=== PATIENT | male | born 1955 | race Hispanic/Latino ===

== ENCOUNTER 2018-06-30 15:51 | Observation (INO) | payer OTHER ==
[~2018-06-30] VITALS: Ht 170.2 cm; Wt 73.3 kg
[~2018-06-30 15:51] MED LIST: METF-526 PO; TAMS0.4C32 PO
[2018-06-30] MEDS ORDERED: CHARCOAL/SORBITOL 50 GM/240 ML SUSP ONE (16:59)
[2018-06-30 17:08] LABS: BASOPHILS % (AUTO) 0.3 % (0.0-5.0); EOSINOPHILS % (AUTO) 0.1 % (0.0-8.0); HEMATOCRIT 54.4 % (42-54); LYMPHOCYTES % (AUTO) 4.9 % (21.0-51.0); MEAN CORPUSCULAR HEMOGLOBIN 29.7 pg (27.0-33.0); MEAN CORPUSCULAR HGB CONC 33.4 g/dL (32.0-36.0); MONOCYTES % (AUTO) 5.4 % (3.0-13.0); NEUTROPHILS % (AUTO) 89.3 % (40.0-77.0); PLATELET COUNT (AUTO) 232 K/uL (130-400); RED BLOOD CELL COUNT(AUTO) 6.11 MIL/uL (4.50-6.20); RED CELL DISTRIBUTION WIDTH 13.9 % (11.0-15.5); WHITE BLOOD COUNT (AUTO) 11.5 K/uL (4.8-10.8)
[2018-06-30 17:08] LABS: ABG BASE EXCESS -5.6 mmol/L (-2.0-3.0); ABG HCO3 19.1 mmol/L (21.0-28.0); ABG OXYGEN SATURATION 91.5 % (95.0-99.0); ABG PCO2 35 mmHg (35-48)
[2018-06-30 17:18] LABS: CARBON DIOXIDE 25 mmol/L (21-32); CHLORIDE 103 mmol/L (101-111); CREATININE 1.4 mg/dL (0.5-1.5); GLOMERULAR FILTR. RATE CALC 55 mL/min (>60); GLUCOSE,RANDOM 103 mg/dL (70-105); POTASSIUM 3.4 mmol/L (3.5-5.1); SODIUM SERUM 140 mmol/L (136-145); UREA NITROGEN, BLOOD 12 mg/dL (7-18)
[2018-06-30 17:23] LABS: ALANINE AMINOTRANSFERASE 36 U/L (12-78); ALCOHOL, BLOOD < 3 mg/dL (0-10); ASPARTATE AMINOTRANSFERASE 55 U/L (10-37); BILIRUBIN,TOTAL 0.6 mg/dL (0.2-1.0); TOTAL PROTEIN, SERUM 7.6 g/dL (6.0-8.3)
[2018-06-30 17:26] LABS: ACETAMINOPHEN < 1 mcg/mL (10-29); SALICYLATE < 2.8 mg/dL (2.8-20.0)
[2018-06-30 23:04] LABS: BILIRUBIN,URINE Negative (NEGATIVE); COLOR,URINE Yellow (YELLOW); GLUCOSE, URINE (UA) Negative (NEGATIVE); KETONES,URINE Negative (NEGATIVE); LEUKOCYTE ESTERASE ,URINE Negative (NEGATIVE); NITRATE,URINE Negative (NEGATIVE); OCCULT BLOOD,URINE Negative (NEGATIVE); PROTEIN,URINE Negative (NEGATIVE)
[2018-06-30 23:07] LABS: APPEARANCE,URINE CLOUDY (CLEAR)
[2018-06-30 23:11] LABS: AMPHET/METH SCREEN,URINE NEGATIVE (NEGATIVE); BARBITURATE SCREEN, URINE NEGATIVE (NEGATIVE); BENZODIAZEPINES SCREEN,URINE NEGATIVE (NEGATIVE); CANNABINOID SCREEN,URINE POSITIVE (NEGATIVE); COCAINE SCREEN,URINE POSITIVE (NEGATIVE); OPIATE SCREEN,URINE NEGATIVE (NEGATIVE); PHENCYCLIDINE SCREEN,URINE NEGATIVE (NEGATIVE)
[2018-06-30 23:19] LABS: AMORPHOUS SEDIMENT,UR Many /LPF (None Seen); BACTERIA,URINE Few /HPF (None Seen); RBC,URINE None Seen /HPF (0-1); SQUAMOUS EPITHELIAL CELL,UR 0-2 /HPF (0-2); WBC,URINE 0-1 /HPF (0-1)
[2018-06-30 23:25] VITALS: BP 141/97
[2018-07-01] VITALS (9 sets, daily range): BP systolic 125–161; BP diastolic 69–92
[2018-07-01] MEDS ORDERED: ACETAMINOPHEN 325 MG TAB PO PRN ×2 (02:30)
[2018-07-01] MEDS ORDERED: PANTOPRAZOLE 40 MG/VIAL IVP SCH (09:00)
[2018-07-01] MEDS ORDERED: TRAZODONE HCL 100 MG TABLET PO SCH (21:00)
[2018-07-01] MEDS: BUSPIRONE HCL 5 MG TABLET PO SCH (21:09)
[2018-07-02] VITALS: BP 124/69
[2018-07-02 04:00] VITALS: BP 138/85
[2018-07-02 08:00] VITALS: BP 131/73
[2018-07-02] MEDS: BUSPIRONE HCL 5 MG TABLET PO SCH (08:31)
[2018-07-02] MEDS ORDERED: PANTOPRAZOLE SODIUM 40 MG TABLET.DR PO SCH (09:00)
[2018-07-02 12:00] VITALS: BP 134/80
[2018-07-02] MEDS ORDERED: TRAMADOL HCL 50 MG TABLET PO PRN (13:30)
[2018-07-02 14:37] LABS: CREATININE 1.4 mg/dL (0.5-1.5); POTASSIUM 3.9 mmol/L (3.5-5.1)
[2018-07-02 16:06] VITALS: BP 129/66
[2018-07-03] MEDS ORDERED: METFORMIN HCL 500 MG TAB.SR.24H PO SCH (08:00)
[2018-07-03] MEDS ORDERED: TAMSULOSIN HCL 0.4 MG CAP.ER.24H PO SCH (09:00)
== END 2018-07-02 16:20 | disposition home or self-care (01) ==
LOC: EDH 15:51 → EDHIP 18:43 → 2DH 22:21
PROVIDERS: ADMIT Internal Medicine Critical Care Medicine; ATTEND Internal Medicine Critical Care Medicine
DX: T50.901A Poisoning by unspecified drugs, medicaments and biological substances, accidental (unintentional), initial encounter (principal); E11.9 Type 2 diabetes mellitus without complications; G89.4 Chronic pain syndrome; E66.9 Obesity, unspecified; I10 Essential (primary) hypertension; F60.7 Dependent personality disorder; F12.90 Cannabis use, unspecified, uncomplicated; Z72.0 Tobacco use; F32.9 Major depressive disorder, single episode, unspecified; F06.4 Anxiety disorder due to known physiological condition; Y92.89 Other specified places as the place of occurrence of the external cause; Z98.84 Bariatric surgery status; Z79.899 Other long term (current) drug therapy
CPT/HCPCS: 36415 ×2; 36600; 72125; 72128; 72131; 80048; 80053; 80305; 81001; 82803; 82948 ×3; 84484; 85025; 93005; 96374; 99291; C9113; G0378 ×46; G0480 ×2; G0481

== ENCOUNTER 2018-07-11 01:52 | Emergency (ER) | payer OTHER ==
[2018-07-11] MEDS ORDERED: KETOROLAC TROMETHAMINE 30MG/ML ONE (02:16)
[2018-07-11 02:19] LABS: BASOPHILS % (AUTO) 0.5 % (0.0-5.0); EOSINOPHILS % (AUTO) 1.4 % (0.0-8.0); HEMATOCRIT 48.3 % (42-54); LYMPHOCYTES % (AUTO) 11.8 % (21.0-51.0); MEAN CORPUSCULAR HGB CONC 33.7 g/dL (32.0-36.0); MEAN CORPUSCULAR VOLUME 89.1 fL (79-99); MONOCYTES % (AUTO) 4.8 % (3.0-13.0); NEUTROPHILS % (AUTO) 81.5 % (40.0-77.0); NUCLEATED RED BLOOD CELLS 0.1 % (0.0-0.19); PLATELET COUNT (AUTO) 206 K/uL (130-400); RED BLOOD CELL COUNT(AUTO) 5.42 MIL/uL (4.50-6.20); WHITE BLOOD COUNT (AUTO) 9.4 K/uL (4.8-10.8)
[2018-07-11 02:21] LABS: CREATININE 1.4 mg/dL (0.5-1.5); POTASSIUM 3.8 mmol/L (3.5-5.1)
[2018-07-11 02:27] LABS: ALBUMIN 3.5 g/dL (3.5-5.0); BILIRUBIN,TOTAL 0.2 mg/dL (0.2-1.0); TOTAL PROTEIN, SERUM 6.9 g/dL (6.0-8.3)
[2018-07-11 02:57] LABS: APPEARANCE,URINE Clear (CLEAR); BILIRUBIN,URINE Negative (NEGATIVE); COLOR,URINE Yellow (YELLOW); GLUCOSE, URINE (UA) Negative (NEGATIVE); KETONES,URINE Negative (NEGATIVE); LEUKOCYTE ESTERASE ,URINE Trace (NEGATIVE); NITRATE,URINE Negative (NEGATIVE); OCCULT BLOOD,URINE Negative (NEGATIVE); PROTEIN,URINE Negative (NEGATIVE); UROBILINOGEN,URINE 0.2 mg/dL (0.2-1.0)
[2018-07-11 03:05] LABS: AMPHET/METH SCREEN,URINE NEGATIVE (NEGATIVE); BARBITURATE SCREEN, URINE NEGATIVE (NEGATIVE); BENZODIAZEPINES SCREEN,URINE NEGATIVE (NEGATIVE); CANNABINOID SCREEN,URINE POSITIVE (NEGATIVE); COCAINE SCREEN,URINE NEGATIVE (NEGATIVE); OPIATE SCREEN,URINE NEGATIVE (NEGATIVE); PHENCYCLIDINE SCREEN,URINE NEGATIVE (NEGATIVE)
[2018-07-11 03:14] LABS: RBC,URINE 0-1 /HPF (0-1); WBC,URINE 0-1 /HPF (0-1)
[2018-07-11 03:15] LABS: BACTERIA,URINE Rare /HPF (None Seen); SQUAMOUS EPITHELIAL CELL,UR 0-2 /HPF (0-2)
== END 2018-07-11 03:35 | disposition home or self-care (01) ==
LOC: EDH 01:52
DX: M94.0 Chondrocostal junction syndrome [Tietze] (principal); I10 Essential (primary) hypertension; Z72.0 Tobacco use; Z88.0 Allergy status to penicillin; Z88.1 Allergy status to other antibiotic agents
CPT/HCPCS: 36415; 71045; 80053; 80305; 81001; 83690; 84484; 85025; 93005; 96374; 99284; G0480; J1885

== ENCOUNTER 2019-09-29 19:47 | Emergency (ER) | payer OTHER ==
[2019-09-29 20:53] LABS: BASOPHILS % (AUTO) 0.5 % (0.0-5.0); HEMATOCRIT 41.3 % (42-54); LYMPHOCYTES % (AUTO) 20.1 % (21.0-51.0); MEAN CORPUSCULAR HEMOGLOBIN 29.5 pg (27.0-33.0); MEAN CORPUSCULAR HGB CONC 33.2 g/dL (32.0-36.0); MONOCYTES % (AUTO) 6.7 % (3.0-13.0); NEUTROPHILS % (AUTO) 71.1 % (40.0-77.0); PLATELET COUNT (AUTO) 219 K/uL (130-400); RED BLOOD CELL COUNT(AUTO) 4.64 MIL/uL (4.50-6.20); RED CELL DISTRIBUTION WIDTH 13.3 % (11.0-15.5); WHITE BLOOD COUNT (AUTO) 8.7 K/uL (4.8-10.8)
[2019-09-29 21:00] LABS: CREATININE 1.3 mg/dL (0.5-1.5); POTASSIUM 3.5 mmol/L (3.5-5.1)
[2019-09-29 21:04] LABS: ALBUMIN 3.1 g/dL (3.5-5.0); BILIRUBIN,TOTAL 0.2 mg/dL (0.2-1.0); TOTAL PROTEIN, SERUM 6.7 g/dL (6.0-8.3)
[2019-09-29] MEDS ORDERED: ONDANSETRON HCL 4 MG/2 ML VIAL ONE (21:06)
[2019-09-29] MEDS ORDERED: SODIUM CHLORIDE 0.9% 1000ML 1,000 ML IV ONE (21:08)
[2019-09-29] MEDS ORDERED: IOHEXOL-350 75 ML VIAL IV ONE (21:28)
== END 2019-09-29 22:40 | disposition home or self-care (01) ==
LOC: EDH 19:47
DX: K29.70 Gastritis, unspecified, without bleeding (principal); R11.2 Nausea with vomiting, unspecified; R10.84 Generalized abdominal pain; R42 Dizziness and giddiness; I10 Essential (primary) hypertension; Z88.1 Allergy status to other antibiotic agents; Z88.0 Allergy status to penicillin; Z88.6 Allergy status to analgesic agent; Z72.0 Tobacco use
CPT/HCPCS: 36415; 74177; 80053; 82550; 83690; 84484; 85025; 93005; 96374; 96375; 99284; J2405; J7030; Q9967

== ENCOUNTER → 2021-09-25 | Outpatient (CLI) | payer MEDICARE ==
[~2021-09-25] VITALS: Ht 170.2 cm; Wt 93.4 kg
[~2021-09-25] MED LIST changes: +AMIT10TA6 PO; +ASPI-1443 PO; +ATOM80CA3 PO; +BUSP5TAB3 PO; +DIAZ10TA4 PO; +DULO30CA52 PO; +FINA5TAB41 PO; +FOLI1CAP23 PO; +FOLI1CAP24 PO; +GABA800T9 PO; +ISOS30TA92 PO; +LORA10TA7 PO; +NAPR-1023 PO; +PANT40TA54 PO; +REGADENOSON 0.4 MG/5 ML PF SYG IVP SCH; +ROSU20TA23 PO; +TAMS-1 PO; +TRAZ-185 PO; +VALS1TAB76 PO
== END | disposition home or self-care (01) ==
LOC: SHCH 09:27
PROVIDERS: ATTEND Internal Medicine Cardiovascular Disease
DX: I25.9 Chronic ischemic heart disease, unspecified (principal); R94.31 Abnormal electrocardiogram [ECG] [EKG]
CPT/HCPCS: 78452; 93017; A9500 ×2; J2785; 96374

== ENCOUNTER 2021-10-31 07:00 | Day surgery (SDC) | payer MEDICARE ==
[2021-10-27 10:19] LABS: APPEARANCE,URINE Clear (CLEAR); BILIRUBIN,URINE Negative (NEGATIVE); COLOR,URINE Yellow (YELLOW); GLUCOSE, URINE (UA) Negative (NEGATIVE); KETONES,URINE Trace mg/dL (NEGATIVE); LEUKOCYTE ESTERASE ,URINE Negative (NEGATIVE); NITRATE,URINE Negative (NEGATIVE); OCCULT BLOOD,URINE Negative (NEGATIVE); PH,URINE 5.5 (5.0-8.0); PROTEIN,URINE Negative (NEGATIVE); UROBILINOGEN,URINE 0.2 mg/dL (0.2-1.0)
[2021-10-27 10:45] LABS: BACTERIA,URINE Rare /HPF (None Seen); RBC,URINE 0-1 /HPF (0-1); WBC,URINE 0-1 /HPF (0-1)
[2021-10-27 10:46] LABS: BASOPHILS % (AUTO) 0.7 % (0.0-5.0); EOSINOPHILS % (AUTO) 0.8 % (0.0-8.0); LYMPHOCYTES % (AUTO) 31.4 % (21.0-51.0); MEAN CORPUSCULAR HEMOGLOBIN 29.8 pg (27.0-33.0); MEAN CORPUSCULAR HGB CONC 33.6 g/dL (32.0-36.0); MEAN CORPUSCULAR VOLUME 88.8 fL (79-99); MONOCYTES % (AUTO) 6.9 % (3.0-13.0); NEUTROPHILS % (AUTO) 59.5 % (40.0-77.0); PLATELET COUNT (AUTO) 221 K/uL (130-400); RED BLOOD CELL COUNT(AUTO) 5.63 MIL/uL (4.50-6.20); RED CELL DISTRIBUTION WIDTH 13.3 % (11.0-15.5); WHITE BLOOD COUNT (AUTO) 7.1 K/uL (4.8-10.8)
[2021-10-27 10:46] LABS: SQUAMOUS EPITHELIAL CELL,UR 0-2 /HPF (0-2)
[2021-10-27 10:55] LABS: INR 0.98 (0.85-1.15); PROTHROMBIN TIME 10.7 SEC (9.6-11.6)
[2021-10-27 10:57] LABS: PARTIAL THROMBOPLASTIN TIME 26.6 SEC (26.3-35.5)
[2021-10-27 12:03] LABS: CREATININE 1.1 mg/dL (0.5-1.5)
[2021-10-31] VITALS (10 sets, daily range): BP systolic 72–101; BP diastolic 41–73
[~2021-10-31] VITALS: Ht 170.2 cm; Wt 90.6 kg
[~2021-10-31 07:00] MED LIST changes: +0.9% NACL 500ML IV.SOLN 500 ML IV SCH; -FOLI1CAP23 PO; -METF-526 PO; -REGADENOSON 0.4 MG/5 ML PF SYG IVP SCH; -ROSU20TA23 PO; -TAMS0.4C32 PO
[2021-10-31] MEDS ORDERED: 0.9%NACL 1000ML 1,000 ML IV ONE (08:21)
[2021-10-31] MEDS ORDERED: NITROGLYCERIN 50MG VIAL ONE (10:05)
[2021-10-31] MEDS ORDERED: LIDOCAINE HCL 400MG/20ML VIAL ONE (10:05)
[2021-10-31] MEDS ORDERED: HEPARIN 10,000 UNIT/10ML (1,000 UNIT/ML) VIAL ONE (10:05)
[2021-10-31] MEDS ORDERED: IOHEXOL 350 MG/ML 100ML INFUS..BTL IV ONE (10:06)
[2021-10-31] MEDS ORDERED: IOHEXOL-350 50ML VIAL IV ONE (10:06)
[2021-10-31] MEDS ORDERED: NICARDIPINE 25MG INJ IV ONE (10:07)
[2021-10-31] MEDS ORDERED: MIDAZOLAM HCL 1 MG/ML 2ML VIAL ONE (10:09)
[2021-10-31] MEDS ORDERED: FENTANYL CITRATE PF 50 MCG/1 ML 2ML VIAL ONE (10:09)
[2021-10-31] MEDS ORDERED: EPINEPHRINE PF 1MG AMP ONE (10:46)
[2021-10-31] MEDS ORDERED: GLUCAGON 1MG KIT 1 MG ML IM PRN (11:30)
[2021-10-31] MEDS ORDERED: DEXTROSE 50%-WATER 50 ML DISP.SYRIN IV PRN (11:30)
[2021-10-31] MEDS ORDERED: ACETAMINOPHEN 325 MG TAB ONE (14:37)
[2021-10-31] MEDS ORDERED: ACETAMINOPHEN 325 MG TAB PO SCH (16:00)
== END 2021-10-31 15:05 | disposition home or self-care (01) ==
LOC: DAH 07:00
PROVIDERS: ATTEND Internal Medicine Cardiovascular Disease
DX: I25.10 Atherosclerotic heart disease of native coronary artery without angina pectoris (principal); Q24.5 Malformation of coronary vessels; I10 Essential (primary) hypertension; K21.9 Gastro-esophageal reflux disease without esophagitis; F17.200 Nicotine dependence, unspecified, uncomplicated; N40.0 Benign prostatic hyperplasia without lower urinary tract symptoms; Z98.890 Other specified postprocedural states; Z88.8 Allergy status to other drugs, medicaments and biological substances; Z79.899 Other long term (current) drug therapy
CPT/HCPCS: 36415; 71045; 80048; 81001; 82948; 85025; 85610; 85730; 93005; 93458; A4215 ×2; A4216; A4221; A4222; A4223 ×3; A4606; A4663; C1769; C1894; J1644 ×2; J2250; J3010; J3490 ×3; J7030 ×2; Q9965 ×2; Q9967; 99156; 99157; J0171

== ENCOUNTER → 2022-01-03 | Outpatient (CLI) | payer MEDICARE ==
[~2022-01-03] MED LIST changes: -0.9% NACL 500ML IV.SOLN 500 ML IV SCH; +FOLI1CAP23 PO; -FOLI1CAP24 PO; -NAPR-1023 PO; +ROSU20TA23 PO; -TRAZ-185 PO; +TRAZ-187 PO
== END | disposition home or self-care (01) ==
LOC: RAH 07:38
PROVIDERS: ATTEND Internal Medicine Cardiovascular Disease
DX: K76.0 Fatty (change of) liver, not elsewhere classified (principal); R10.9 Unspecified abdominal pain
CPT/HCPCS: 76700

== ENCOUNTER → 2022-12-06 | Outpatient (CLI) | payer OTHER | END | disposition home or self-care (01) | LOC: RAH 08:34 | PROVIDERS: ATTEND Internal Medicine Gastroenterology | DX: R13.10 Dysphagia, unspecified (principal) | CPT/HCPCS: 74220 ==

== ENCOUNTER 2022-12-07 09:39 | Emergency (ER) | payer OTHER ==
[~2022-12-07] VITALS: Ht 170.2 cm; Wt 90.7 kg
[2022-12-07 09:55] LABS: EOSINOPHILS % (AUTO) 1.9 % (0.0-8.0); HEMATOCRIT 47.5 % (42-54); LYMPHOCYTES % (AUTO) 38.4 % (21.0-51.0); MEAN CORPUSCULAR HEMOGLOBIN 24.9 pg (27.0-33.0); MEAN CORPUSCULAR HGB CONC 31.8 g/dL (32.0-36.0); MEAN CORPUSCULAR VOLUME 78.3 fL (79-99); MONOCYTES % (AUTO) 9.3 % (3.0-13.0); PLATELET COUNT (AUTO) 231 K/uL (130-400); RED BLOOD CELL COUNT(AUTO) 6.07 MIL/uL (4.50-6.20); RED CELL DISTRIBUTION WIDTH 17.2 % (11.0-15.5)
[2022-12-07 10:12] LABS: APPEARANCE,URINE CLEAR (CLEAR); BILIRUBIN,URINE NEGATIVE (NEGATIVE); COLOR,URINE COLORLESS (YELLOW); GLUCOSE, URINE (UA) NEGATIVE (NEGATIVE); KETONES,URINE NEGATIVE (NEGATIVE); LEUKOCYTE ESTERASE ,URINE NEGATIVE Leu/uL (NEGATIVE); NITRATE,URINE NEGATIVE (NEGATIVE); OCCULT BLOOD,URINE NEGATIVE (NEGATIVE); PROTEIN,URINE NEGATIVE (NEGATIVE); UROBILINOGEN,URINE 0.2 mg/dL (0.2-1.0)
[2022-12-07 10:16] LABS: ALANINE AMINOTRANSFERASE 54 U/L (12-78); ALBUMIN 3.9 g/dL (3.5-5.0); ASPARTATE AMINOTRANSFERASE 55 U/L (10-37); CARBON DIOXIDE 25 mmol/L (21-32); CHLORIDE 101 mmol/L (101-111); CREATINE KINASE, TOTAL 53 U/L (21-232); CREATININE 1.1 mg/dL (0.5-1.5); GLOMERULAR FILTR. RATE CALC 74 mL/min (>90); GLUCOSE,RANDOM 166 mg/dL (70-105); POTASSIUM 3.9 mmol/L (3.5-5.1); SODIUM SERUM 137 mmol/L (136-145); TOTAL PROTEIN, SERUM 7.3 g/dL (6.0-8.3); UREA NITROGEN, BLOOD 15 mg/dL (7-18)
[2022-12-07 10:17] LABS: B-TYPE NATRIURETIC PEPTIDE 56 pg/mL (0-100)
[2022-12-07 12:39] VITALS: BP 145/82
== END 2022-12-07 12:40 | disposition home or self-care (01) ==
LOC: EDH 09:39
DX: R07.89 Other chest pain (principal); R07.0 Pain in throat; I10 Essential (primary) hypertension; E78.00 Pure hypercholesterolemia, unspecified; I49.3 Ventricular premature depolarization; Z79.82 Long term (current) use of aspirin; Z79.899 Other long term (current) drug therapy; Z90.49 Acquired absence of other specified parts of digestive tract; Z98.890 Other specified postprocedural states; Z95.1 Presence of aortocoronary bypass graft; Z88.0 Allergy status to penicillin; Z88.5 Allergy status to narcotic agent
CPT/HCPCS: 36415; 71250; 74176; 80053; 81003; 82550; 83735; 83880; 84484; 85025; 93005

== ENCOUNTER → 2023-07-30 | Outpatient (CLI) | payer MEDICARE | END | disposition home or self-care (01) | LOC: RAH 12:38 | PROVIDERS: ATTEND Family Medicine | DX: I73.9 Peripheral vascular disease, unspecified (principal); I77.1 Stricture of artery | CPT/HCPCS: 93925 ==

== ENCOUNTER → 2023-10-16 | Outpatient (CLI) | payer MEDICARE ==
[~2023-10-16] MED LIST changes: +BACL10TA PO; +CELE200 PO; +DILT120C43 PO; +ERGO500093 PO; +ESOM40CA54 PO; +FLUT15.845 NS; +FURO40TA5 PO; +HYDR-3421 PO; +NAPR-1023 PO; +NITR0.4T50 SL; +OMEP40CA21 PO; +PREG100C56 PO; +TRAZ150T79 PO
== END | disposition home or self-care (01) ==
LOC: RAH 13:48
PROVIDERS: ATTEND Family Medicine
DX: M47.26 Other spondylosis with radiculopathy, lumbar region (principal); M43.5X6 Other recurrent vertebral dislocation, lumbar region; M48.00 Spinal stenosis, site unspecified; M51.16 Intervertebral disc disorders with radiculopathy, lumbar region
CPT/HCPCS: 72148

== ENCOUNTER → 2023-12-03 | Outpatient (CLI) | payer MEDICARE ==
[~2023-12-03] MED LIST changes: -AMIT10TA6 PO; -ATOM80CA3 PO; -BUSP5TAB3 PO; -DIAZ10TA4 PO; -DULO30CA52 PO; -GABA800T9 PO; -LORA10TA7 PO; -PANT40TA54 PO; -TRAZ-187 PO; -VALS1TAB76 PO
[2023-12-03 12:34] LABS: ALBUMIN 3.3 g/dL (3.5-5.0); BILIRUBIN,TOTAL 0.3 mg/dL (0.2-1.0); POTASSIUM 4.1 mmol/L (3.5-5.1); TOTAL PROTEIN, SERUM 6.6 g/dL (6.0-8.3)
== END | disposition home or self-care (01) ==
LOC: LAB 09:29
PROVIDERS: ATTEND Internal Medicine Cardiovascular Disease
DX: R60.9 Edema, unspecified (principal)
CPT/HCPCS: 36415; 80053; 83880

== ENCOUNTER → 2024-01-03 | Outpatient (CLI) | payer MEDICARE ==
[~2024-01-03] MED LIST changes: -ESOM40CA54 PO; +ESOM40CA66 PO; +GADOTERATE MEGLUMINE 10 MMOL/20 ML VIAL IV ONE
== END | disposition home or self-care (01) ==
LOC: RAH 13:12
PROVIDERS: ATTEND Family Medicine
DX: R90.82 White matter disease, unspecified (principal); H93.3X3 Disorders of bilateral acoustic nerves; H93.13 Tinnitus, bilateral
CPT/HCPCS: 70553; A9575

== ENCOUNTER 2024-01-12 00:37 | Emergency (ER) | payer MEDICARE ==
[~2024-01-12] VITALS: Ht 157.5 cm; Wt 93.0 kg
[~2024-01-12 00:37] MED LIST changes: -ASPI-1443 PO; -BACL10TA PO; +BUSP10TA3 PO; -CELE200 PO; -DILT120C43 PO; +DOCU100C33 PO; +FAMO40TA7 PO; -FLUT15.845 NS; -FURO40TA5 PO; -GADOTERATE MEGLUMINE 10 MMOL/20 ML VIAL IV ONE; -HYDR-3421 PO; +MULT-1289 PO; -NAPR-1023 PO; -OMEP40CA21 PO; +PROP20TA7 PO; -TRAZ150T79 PO
[2024-01-12] MEDS: SOLU-MEDROL 125MG VIAL IVP STA (00:52)
[2024-01-12] MEDS: EPINEPHRINE PF 1MG (1:1,000) 1 MG/ML AMP IM STA (00:52)
[2024-01-12] MEDS: FAMOTIDINE 20MG VIAL IV STA (00:53)
[2024-01-12] MEDS: DiphenhydrAMINE HCL 50 MG/ML VIAL IV STA (00:53)
[2024-01-12 01:05] VITALS: BP 177/87; PULSE 77; RESP 18; O2SAT 99
== END 2024-01-12 01:50 | disposition home or self-care (01) ==
LOC: EDH 00:37
DX: T50.905A Adverse effect of unspecified drugs, medicaments and biological substances, initial encounter (principal); I10 Essential (primary) hypertension; E78.00 Pure hypercholesterolemia, unspecified; Z79.82 Long term (current) use of aspirin; Z79.899 Other long term (current) drug therapy; Z90.49 Acquired absence of other specified parts of digestive tract; Z98.890 Other specified postprocedural states; Z88.0 Allergy status to penicillin; Z88.5 Allergy status to narcotic agent; Z88.8 Allergy status to other drugs, medicaments and biological substances; Y92.89 Other specified places as the place of occurrence of the external cause
CPT/HCPCS: 99284; 96374; 96375; 96372; J1200; J3490; J2919; J0171

== ENCOUNTER → 2024-08-11 | Outpatient (CLI) | payer OTHER ==
--- NOTE | 2024-08-11 15:15 | HMCIMG ---
MR SPINAL CANAL, CERV WO CON HISTORY: Pain COMPARISON: None TECHNIQUE: MRI of the cervical spine was performed utilizing multiple pulse sequences in axial and sagittal plane. Patient was not given contrast through intravenous route. FINDINGS: No abnormal signal intensity is seen of the visualized bony structure. Mild loss of vertebral height is seen at the C5-C6 with 20% loss of height.. There is straightening of normal lordotic cervical curvature which may be related to muscle spasm or positioning. Degenerative disc signals are present at all cervical spine levels. Cerebellar tonsils are in normal position. The cervical cord is of normal signal intensity without cord compression or impingement. At the C5-6 level, there is spondylotic disc causing anterior CSF space effacement with bilateral lateral recess stenosis and minimal bilateral neural foraminal stenosis. The central canal measures approximately 6.5 mm in its anterior posterior dimension. At the C6-7 level, there is spondylotic disc causing anterior CSF space effacement with bilateral lateral recess stenosis and mild bilateral neural foraminal stenosis. The central canal measures approximately 7.1 mm in its anterior posterior dimension. IMPRESSION: 1. DJD with cervical spine spondylosis and mild central canal narrowing predominantly involving the C5-6 and C6-7 levels.
== END | disposition home or self-care (01) ==
LOC: RAH 10:38
PROVIDERS: ATTEND Family Medicine
DX: M47.812 Spondylosis without myelopathy or radiculopathy, cervical region (principal); M48.02 Spinal stenosis, cervical region; R29.890 Loss of height
CPT/HCPCS: 72141

== ENCOUNTER → 2025-01-19 | Outpatient (CLI) | payer OTHER ==
[~2025-01-19] MED LIST changes: -TAMS-1 PO; +TAMS-55 PO
--- NOTE | 2025-01-20 10:23 | HMCIMG ---
EXAM: MR Lumbar Spine Without Intravenous Contrast. CLINICAL HISTORY: Pain. TECHNIQUE: Magnetic resonance images of the lumbar spine in multiple planes. CONTRAST: None. COMPARISON: MRI lumbar spine dated 10/16/23. FINDINGS: Sacralization of the last lumbar vertebra. Postoperative status evident by posterior spinal fixation orthopedic hardware at L4-L5 with intervertebral disc fusion. Chronic wedge compression fracture of the T12 vertebral body with loss of about 40%-50% of its height. No acute fracture. Normal lordotic curvature. Mild lumbar spondylosis with multilevel marginal osteophytes, facet arthropathy, disc desiccation and mild degenerative disc space reduction at T11-T12 and T12-L1. Grade I degenerative anterolisthesis of L4 over L5. Normal remaining vertebral body and disc heights. Normal marrow signal of the vertebrae. Conus medullaris terminates at the T12-L1 level. No abnormal epidural masses. The surrounding soft tissues are unremarkable. Individual spinal levels are described as follows: T12-L1: No disc bulge or herniation. No neural foraminal, lateral recess or spinal canal stenosis. L1-L2: No disc bulge or herniation. No neural foraminal, lateral recess or spinal canal stenosis. L2-L3: 3 mm diffuse disc bulge. Moderate bilateral lateral recess and mild bilateral neural foraminal stenosis. Mild spinal canal stenosis. L3-L4: 4 mm diffuse disc bulge. Bilateral ligamentum flavum hypertrophy. Moderate bilateral lateral recess and neural foraminal stenosis. Moderate spinal canal stenosis. L4-L5: Status post laminectomy. 2 mm diffuse disc bulge. Bilateral facet hypertrophy. Moderate bilateral lateral recess and neural foraminal stenosis. Moderate spinal canal stenosis. L5-S1: Status post laminectomy. No disc bulge or herniation. No neural foraminal, lateral recess or spinal canal stenosis. IMPRESSION: Sacralization of the last lumbar vertebra. Postoperative status evident by posterior spinal fixation orthopedic hardware at L4-L5 with intervertebral disc fusion. Chronic wedge compression fracture of the T12 vertebral body with loss of about 40%-50% of its height. Mild lumbar spondylosis with multilevel marginal osteophytes, facet arthropathy, disc desiccation and mild degenerative disc space reduction at T11-T12 and T12-L1. Grade I degenerative anterolisthesis of L4 over L5. Diffuse disc bulges at L2-L3 and L3-L4. Moderate bilateral lateral recess and mild bilateral neural foraminal stenosis at L2-L3 with mild spinal canal stenosis. Moderate bilateral lateral recess and neural foraminal stenosis at L3-L4 with moderate spinal canal stenosis. Compared to the prior MRI lumbar spine dated 10/16/23, there are interval postoperative changes at L4-L5. The remaining findings are stable. /[place]
== END | disposition home or self-care (01) ==
LOC: RAH 14:41
PROVIDERS: ATTEND Family Medicine
DX: M47.26 Other spondylosis with radiculopathy, lumbar region (principal); S22.080A Wedge compression fracture of T11-T12 vertebra, initial encounter for closed fracture; M51.16 Intervertebral disc disorders with radiculopathy, lumbar region; M43.16 Spondylolisthesis, lumbar region; M48.061 Spinal stenosis, lumbar region without neurogenic claudication; M25.78 Osteophyte, vertebrae; M47.814 Spondylosis without myelopathy or radiculopathy, thoracic region; X58.XXXA Exposure to other specified factors, initial encounter; Y93.89 Activity, other specified; Y92.89 Other specified places as the place of occurrence of the external cause; Y99.8 Other external cause status; Z98.1 Arthrodesis status; Z98.890 Other specified postprocedural states
CPT/HCPCS: 72148

== ENCOUNTER → 2025-01-25 | Outpatient (CLI) | payer OTHER ==
[2025-01-25 08:55] LABS: CREATININE 1.0 mg/dL (0.5-1.3); GLOMERULAR FILTR. RATE CALC 81.0 mL/min (>90); UREA NITROGEN, BLOOD 9.0 mg/dL (7-18)
== END | disposition home or self-care (01) ==
LOC: LAB 08:19
PROVIDERS: ATTEND Surgery
DX: K44.9 Diaphragmatic hernia without obstruction or gangrene (principal); K95.89 Other complications of other bariatric procedure
CPT/HCPCS: 36415; 82565; 84520

== ENCOUNTER → 2025-01-26 | Outpatient (CLI) | payer OTHER ==
[~2025-01-26] MED LIST changes: +IOHEXOL-350 75 ML VIAL IV ONE
--- NOTE | 2025-01-27 04:06 | HMCIMG ---
EXAM: CT Abdomen and Pelvis without and with IV contrast. CLINICAL HISTORY: Dysphagia. TECHNIQUE: Thin collimated axial CT images of the abdomen and pelvis were obtained with sagittal and coronal reformatted images also submitted. CT scan done according to ALARA (As Low As Reasonably Achievable). Intravenous contrast was administered. COMPARISON: CT abdomen and pelvis without contrast dated 01/10/24. FINDINGS: Post-sternotomy status. Unremarkable visualized lung parenchyma. There is no focal abnormality appreciated within the liver, pancreas, spleen, adrenals, or kidneys. Tiny splenic cyst. Post cholecystectomy status. Post partial gastrectomy status with surgical kael in place. Surgical kael along the anterior abdominal wall. There is no obvious bowel wall thickening. Bowel loops are normal in caliber without evidence of obstruction or ileus. The appendix is not visualized. Uncomplicated colonic diverticulosis. There is no abnormality within the urinary bladder. Unremarkable reproductive organs. Abdominal and pelvic vessels are patent. No significant lymphadenopathy. No free fluid. There is no acute osseous abnormality. Mild degenerative osseous changes. Age indeterminate wedge compression fracture of the T12 vertebral body with 40%-50% height loss. Postoperative spinal fixation apparatus at L4-L5 vertebral levels with intervening age fixation. IMPRESSION: 1. Post-surgical changes including sternotomy, cholecystectomy, partial gastrectomy, and L4-L5 spinal fixation. 3. Uncomplicated colonic diverticulosis. 4. Tiny splenic cyst. 5. Mild degenerative osseous changes. Age-indeterminate T12 vertebral body compression fracture with 40-50% height loss. Compared with the prior CT abdomen and pelvis dated 01/10/24, there is interval resolution of pneumoperitoneum, mesenteric haziness, abdominal wall emphysema, and bilateral pleural effusions. The remaining findings are relatively stable. /[place]
== END | disposition home or self-care (01) ==
LOC: RAH 08:30
PROVIDERS: ATTEND Surgery
DX: D73.4 Cyst of spleen (principal); S22.080A Wedge compression fracture of T11-T12 vertebra, initial encounter for closed fracture; K57.30 Diverticulosis of large intestine without perforation or abscess without bleeding; K44.9 Diaphragmatic hernia without obstruction or gangrene; R13.10 Dysphagia, unspecified; R10.13 Epigastric pain; M47.819 Spondylosis without myelopathy or radiculopathy, site unspecified; Z98.890 Other specified postprocedural states; Z90.49 Acquired absence of other specified parts of digestive tract; Z90.3 Acquired absence of stomach [part of]; X58.XXXA Exposure to other specified factors, initial encounter; Y93.89 Activity, other specified; Y92.89 Other specified places as the place of occurrence of the external cause; Y99.8 Other external cause status
CPT/HCPCS: 74177; Q9967

== ENCOUNTER → 2025-02-03 | Outpatient (CLI) | payer OTHER ==
[~2025-02-03] MED LIST changes: -IOHEXOL-350 75 ML VIAL IV ONE
--- NOTE | 2025-02-03 12:49 | HMCIMG ---
PROCEDURE: Double Contrast upper GI series. TECHNIQUE: Oral ingestion of barium and effervescent crystals was performed and multiple fluoroscopic images were obtained to evaluate the esophagus, stomach, and duodenum. FLUOROSCOPY TIME: 0.9 minutes FINDINGS: The esophagus demonstrates normal motility. The mucosa is normal without evidence of mass, ulceration, or stricture. There was mild to moderate gastroesophageal reflux witnessed during this examination. There is a small hiatal hernia. A barium tablet easily passed through the esophagus into the stomach without hold up. Patient is status post gastric sleeve surgery with postsurgical changes. The stomach demonstrates normal motility and normal mucosa without evidence of mass, ulceration, or stricture. The duodenal bulb is unremarkable. The duodenum demonstrates normal motility, and normal mucosa without evidence of mass, ulceration, or stricture. Status post median sternotomy with cardiac revascularization procedure. There is grade 1-2 compression fractures of the superior endplate of T12 vertebral body.. IMPRESSION: Status post gastric sleeve surgery. There is postsurgical small hiatal hernia with grade 2 esophageal reflux. There is compression fracture of superior endplate of T12 which is amenable for vertebral body augmentation.
== END | disposition home or self-care (01) ==
LOC: RAH 10:02
PROVIDERS: ATTEND Surgery
DX: K21.9 Gastro-esophageal reflux disease without esophagitis (principal); K44.9 Diaphragmatic hernia without obstruction or gangrene; M48.54XA Collapsed vertebra, not elsewhere classified, thoracic region, initial encounter for fracture; R13.10 Dysphagia, unspecified; R10.13 Epigastric pain; Z98.84 Bariatric surgery status; Z98.890 Other specified postprocedural states
CPT/HCPCS: 74240

== ENCOUNTER → 2025-02-24 | Outpatient (CLI) | payer OTHER ==
--- NOTE | 2025-02-24 13:15 | NUR ---
MBSS COMPLETED (OUTPATIENT). Aspiration during the swallow with pudding thick followed by immediate cough response; deep transient penetration during the swallow with nectar thick liquids via tsp with no cough response; deep non-transient penetration during the swallow with mixed textures followed by throat clear response. RECOMMEND: easy to chew solids (NO MIXED TEXTURES), thin liquids (small, single sips), and pills crushed with apple sauce or whole 1 per swallow with apple sauce as tolerated. DIAGNOSTIC FINDINGS: Pt presented with moderate pharyngeal dysphagia characterized by decreased tongue base retraction; decreased hyo-laryngeal elevation/excursion; evidenced by residue on base of tongue, valleculae, pyriform sinuses and posterior pharyngeal wall cleared with extra dry swallows; resulting in aspiration during the swallow with pudding thick followed by immediate cough response; deep transient penetration during the swallow with nectar thick liquids via tsp with no cough response; deep non-transient penetration during the swallow with mixed textures followed by throat clear response. NOTE: Pt wearing full dentures at time of eval. Pt complains of food getting stuck and Hx of vomiting after meal since after his gastric sleeve surgery. MARKETING WRITER reviewed results and recommendations with patient and . MARKETING WRITER educated patient on risks and consequences of aspiration. Speech therapy warranted at this time to address moderate pharyngeal dysphagia. All questions answered. Addendum: 02/24/[address] JAYA CASTRO Amended: Links added. Addendum: 02/24/[address] JAYA CASTRO ADDITIONAL INFORMATION: COMPENSATORY STRATEGIES: 1. sit upright during oral intake 2. no mixed textures 3. small and single sips/small bites 4. extra dry swallows 5. no scattered foods 6. nothing that melts such as: pudding, jello, ice cream
--- NOTE | 2025-02-25 15:55 | HMCIMG ---
MODIFIED BARIUM SWALLOW W CINE REASON: DYSPHAGIA; GERD W/O ESOPHAGITIS FINDINGS: Fluoroscopic assistance was provided to the speech pathologist while performing examination. For findings and dietary recommendations, refer to speech pathologist's report. FLUORO TIME: 4.7 minutes IMPRESSION: Modified barium swallow as described.
== END | disposition home or self-care (01) ==
LOC: RAH 12:11
PROVIDERS: ATTEND Surgery
DX: K21.9 Gastro-esophageal reflux disease without esophagitis (principal); R13.10 Dysphagia, unspecified
CPT/HCPCS: 74230; 92611

== ENCOUNTER → 2025-03-08 | Outpatient (CLI) | payer OTHER ==
[~2025-03-08] MED LIST changes: +IOHEXOL 350 MG/ML 100ML INFUS..BTL IV ONE
--- NOTE | 2025-03-15 12:26 | CARDIOLOGY ---
RAD REPORT: [facility] CT ANGIO RADIOLOGY REPORT: CORONARY CT ANGIOGRAPHY DATE: Mar 15, 2025 QUALITY: Excellent CLINICAL HISTORY AND INDICATION: [ CABG ] TECHNIQUE: After obtaining a preliminary chili pepper grinder image, contrast imaging performed on an [employer] [id number] scanner. A dedicated, limited window, coronary imaging protocol was used, with single breath-hold, retrospective ECG gating, and automated arrhythmia rejection. 100 cc of low osmolar contrast agent: Omnipaque 350 was delivered via a 18-gauge IV catheter in the right antecubital fossa, using a power injector and followed by 60 cc of normal saline bolus as a chaser. Collimated images were reformatted at 0.5 mm intervals, and sent to an offline independent workstation for interpretation, using 3D anatomic reconstructions: Curved multiplanar reconstructions, maximum intensity projections, and multiplanar imaging. No metoprolol was administered prior to scanning due to low baseline heart rate. 0.8 mg SL nitroglycerin was given. CORONARY ARTERY DESCRIPTIONS: The coronary arteries arise in normal position. Left main coronary artery: Normal caliber vessel that bifurcates into the LAD and LCx. No stenosis. Left anterior descending coronary artery: Normal caliber vessel and gives rise to diagonal and septal branches. 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 There is severe mid LAD stenosis. Left circumflex coronary artery: Normal caliber, nondominant and gives rise to a large OM branch. No stenosis. Right coronary artery: Large, dominant vessel giving rise to the PL and PDA branches. Severe proximal to mid RCA stenosis. Patent MATHEWS to LAD. Patent SVG to mid RCA. Thoracic Aorta: Normal diameter. Rose Snow MD Cardiovascular Disease [facility] ROSE SNOW MD Mar 15, 2025 12:26
== END | disposition home or self-care (01) ==
LOC: RAH 08:51
PROVIDERS: ATTEND Internal Medicine Cardiovascular Disease
DX: R07.9 Chest pain, unspecified (principal)
CPT/HCPCS: 75574; Q9967

== ENCOUNTER 2025-04-14 08:38 | Inpatient (IN) | payer OTHER ==
[~2025-04-14] VITALS: Ht 170.2 cm; Wt 83.0 kg
[~2025-04-14 08:38] MED LIST changes: -IOHEXOL 350 MG/ML 100ML INFUS..BTL IV ONE
[2025-04-14 10:00] LABS: IMMATURE GRANULOCYTE ABSOLUTE 0.04 K/uL (0-1); NUCLEATED RED BLOOD CELLS 0.0 % (0.0-0.19); PLATELET COUNT (AUTO) 183 K/uL (130-400); RED BLOOD CELL COUNT(AUTO) 5.40 MIL/uL (4.50-6.20); RED CELL DISTRIBUTION WIDTH 19.1 % (11.0-15.5); WHITE BLOOD COUNT (AUTO) 6.2 K/uL (4.8-10.8)
[2025-04-14 10:12] LABS: INR 1.0 (0.85-1.15)
[2025-04-14 10:41] LABS: CREATININE 1.2 mg/dL (0.5-1.3); GLOMERULAR FILTR. RATE CALC 65.0 mL/min (>90); GLUCOSE,RANDOM 112.0 mg/dL (70-105); SODIUM SERUM 135.0 mmol/L (136-145); UREA NITROGEN, BLOOD 17.0 mg/dL (7-18)
--- NOTE | 2025-04-14 10:41 | ERN ---
General Chief Complaint: Dizzy/Light Headed Stated Complaint: DIZZINESS Time Seen by MD: 08:50 Source: patient History of Present Illness Initial Comments This patient is a 69-year-old gentleman who presented with complaint of dizziness. Patient stated that he has been having dizziness for the past month but this morning, it got worse. He complained of numbness in bilateral feet and hands. Also had episodes of radiating sharp pain in his left arm which come and go. No blurriness of vision or spinning sensation of surroundings. No motor weakness appreciated. No nystagmus. No Intention tremor or resting tremor. He has a history of lumbar and thoracic spine surgery. He also underwent gastrectomy for weight loss. He noted that he has had a bony protrusion along his cervical spine which could be appreciated on extension of neck. While taking history, he noted that he is having ringing sensation. Timing/Duration: getting worse Allergies: Coded Allergies: ampicillin (Unverified Allergy, Severe, SWELLING, 07/01/18) Swelling and body rash hydrocodone (Unverified Allergy, Unknown, 01/06/24) morphine (Unverified Adverse Reaction, Intermediate, HALLUCINATIONS, 07/01/18) Home Meds Reported Medications Linaclotide (Linzess) 290 Mcg Capsule, 1 CAP PO DAILY for 30 Days, #30 CAP 0 Refills 04/14/25 Tizanidine HCl (Tizanidine HCl) 2 Mg Tablet, 2 MG PO BID, TAB 04/14/25 Cyclobenzaprine HCl (Cyclobenzaprine HCl) 7.5 Mg Tablet, 7.5 MG PO HS, TAB 04/14/25 Rosuvastatin Calcium (Rosuvastatin Calcium) 20 Mg Tablet, 20 MG PO HS, TAB 04/14/25 Topiramate (Topiramate) 50 Mg Tablet, 1 TAB PO BID for 30 Days, #60 TAB 0 Refills 04/14/25 Isosorbide Mononitrate (Isosorbide Mononitrate ER) 30 Mg Tab.er.24h, 30 MG PO HS, TAB 04/14/25 Famotidine (Famotidine) 40 Mg Tablet, 40 MG PO HS, TAB 04/14/25 Meclizine HCl (Meclizine HCl) 25 Mg Tablet, 25 MG PO BID, TAB 04/14/25 Pantoprazole Sodium (Pantoprazole Sodium) 40 Mg Tablet.dr, 1 TAB PO DAILY for 30 Days, #30 TAB 0 Refills 04/14/25 Famotidine (Famotidine) 40 Mg Tablet, 40 MG PO BID, TAB 01/06/24 Mv-Min/Folic/K1/Lycopen/Lutein (Centrum Silver Men Tablet) 300 Mcg-60 Mcg-600 Mc g-300 Mcg Tablet, 1 EACH PO DAILY, TAB 01/06/24 Esomeprazole Magnesium (Esomeprazole Magnesium) 40 Mg Capsule.dr, 40 MG PO AM, CAP 01/06/24 Buspirone HCl (Buspirone HCl) 10 Mg Tablet, 10 MG PO BID, TAB 01/06/24 Docusate Sodium (Docusate Sodium) 100 Mg Capsule, 100 MG PO BID, CAP 01/06/24 Propranolol HCl (Propranolol HCl) 20 Mg Tablet, 20 MG PO AM, TAB 01/06/24 Ergocalciferol (Vitamin D2) (Vitamin D2) 1,250 Mcg (47455 Unit) Capsule, 1250 MCG PO weekly, CAP 11/14/23 Nitroglycerin (Nitroglycerin) 0.4 Mg Tab.subl, 0.4 MG SL chest pain, TAB.SL 11/14/23 Pregabalin (Pregabalin) 100 Mg Capsule, 100 MG PO BID, CAP 11/14/23 Folic Acid/Vitamin B Comp W-C ([place] Caps Softgel) 1 Mg Capsule, 1 MG PO DAILY, CAP 12/13/21 Rosuvastatin Calcium (Crestor) 20 Mg Tablet, 20 MG PO DAILY, TAB 12/13/21 Finasteride (Finasteride) 5 Mg Tablet, 5 MG PO DAILY, TAB 10/30/21 Isosorbide Mononitrate (Isosorbide Mononitrate ER) 30 Mg Tab.er.24h, 30 MG PO DAILY, TAB 10/30/21 Tamsulosin HCl (Flomax) 0.4 Mg Cap.er.24h, 0.4 MG PO HS, CAPSULE. 10/30/21 Past Medical History Past Medical History: High Cholesterol, Heart Disease, Hypertension, Pr ostatitis, Renal Disese Past Surgical History: Appendectomy, Cholecystectomy, CABG, Bariatric Surgery Surgical History Other: T 12, ABDOMINAL HERNIA, L ARM SX, SPLLEN Family History Family History: HTN Social History Social History: Negative, Lives with family Constitutional: (+) weakness EENTM: (+) other documentation (Tinnitus) Respiratory: (+) short of breath Cardiovascular: (-) chest pain, (-) edema, (-) palpitations, (-) syncope, (-) dyspnea on exertion, (-) other documentation Gastrointestinal/Abdominal: (-) nausea, (-) vomiting, (-) diarrhea, (-) abdominal pain, (-) abdominal distention, (-) constipation, (-) rectal bleeding, (-) dark stool/melena, (-) other documentation Genitourinary: (-) penile discharge, (-) dysuria, (-) frequency, (-) hematuria, (-) pain, (-) other documentation Musculoskeletal: (+) Neck pain Skin: (-) laceration, (-) contusion, (-) abrasion, (-) abscess, (-) rash, (-) change in color, (-) change in hair, (-) change in nails, (-) diaphoresis, (-) dryness, (-) other documentation Neuro: (+) numbness, (+) dizziness Psych: (-) depression, (-) suicidal ideation, (-) anxiety, (-) emotional problems, (-) auditory hallucinations, (-) visual hallucinations Hematologic/Lymphatic: (-) anemia, (-) blood clots, (-) easy bleeding, (-) easy bruising, (-) swollen glands, (-) other documentation Immunological/Allergic: (-) food allergy, (-) grass allergy, (-) mold allergy, (-) pollen allergy, (-) HIV/AIDS, (-) transplant, (-) othe documentation Review of Systems: was completed, & the rest were negative. Nurses Notes Reviewed: Yes Physical Exam General Appearance: (+) apparent distress Orientation: (+) alert, (+) oriented x 3 Ear, Nose, Throat: (+) hearing grossly normal, (+) moist mucous membraine, (+) hearing decreased Neck: (+) other documentaion (Protrusion noted on the posterior aspect of neck) Respiratory: (+) chest non-tender, (+) lungs clear Heart: (+) regular Vascular: (+) no edema Gastrointestinal: (+) soft, (+) non-tender, (+) no organomegaly Extremities: (+) normal range of motion, (+) non-tender Neurologic/Psychiatric: (+) normal speech, (+) no motor defecits, (+) normal gait Skin: (+) normal color Results Laboratory and Microbiology Lab and Micro Result Laboratory Tests Test 04/14/25 09:48 04/14/25 11:12 04/14/25 11:18 White Blood Count 6.2 K/uL (4.8-10.8) Red Blood Count 5.40 MIL/uL (4.50-6.20) Hemoglobin 13.3 g/dL (14.0-18.0) L Hematocrit 42.4 % (42-54) Mean Corpuscular Volume 78.5 fL (79-99) L Mean Corpuscular Hemoglobin 24.6 pg (27.0-33.0) L Mean Corpuscular Hemoglobin Concent 31.4 g/dL (32.0-36.0) L Red Cell Distribution Width 19.1 % (11.0-15.5) H Platelet Count 183 K/uL (130-400) Mean Platelet Volume 9.1 fL (7.5-10.5) Immature Granulocyte % (Auto) 0.6 % (0-1) Neutrophils (%) (Auto) 67.2 % (40.0-77.0) Lymphocytes (%) (Auto) 25.6 % (21.0-51.0) Monocytes (%) (Auto) 5.7 % (3.0-13.0) Eosinophils (%) (Auto) 0.6 % (0.0-8.0) Basophils (%) (Auto) 0.3 % (0.0-5.0) Neutrophils # (Auto) 4.1 K/uL (1.8-7.7) Lymphocytes # (Auto) 1.6 K/uL (1.0-4.8) Monocytes # (Auto) 0.4 K/uL (0.1-1.0) Eosinophils # (Auto) 0.04 K/uL (0.00-0.70) Basophils # (Auto) 0.02 K/uL (0.00-0.20) Absolute Immature Granulocyte (auto 0.04 K/uL (0-1) Nucleated Red Blood Cells 0.0 % (0.0-0.19) Red Blood Cell Morphology See comments Erythrocyte Sedimentation Rate 17 MM/HR (0-20) Prothrombin Time 10.6 SEC (9.6-11.6) Prothromb Time International Ratio 1.00 (0.85-1.15) Activated Partial Thromboplast Time 27.1 SEC (26.3-35.5) Sodium Level 135 mmol/L (136-145) L Potassium Level 3.7 mmol/L (3.5-5.1) Chloride Level 102 mmol/L (101-111) Carbon Dioxide Level 21 mmol/L (21-32) Blood Urea Nitrogen 17 mg/dL (7-18) Creatinine 1.2 mg/dL (0.5-1.3) Glomerular Filtration Rate Calc 65 mL/min (>90) Random Glucose 112 mg/dL (70-105) H Hemoglobin A1c 6.6 % (4.0-6.0) H Estimated Average Glucose (eAG) 143 mg/dL (70-126) H Total Calcium 8.9 mg/dL (8.5-10.1) Iron Level 26 mcg/dL (65-175) L Total Iron Binding Capacity 340 mcg/dL (250-450) Percent Iron Saturation 7.6 % (30-44) L Ferritin 17 ng/mL (30-400) L Total Bilirubin 0.3 mg/dL (0.2-1.0) Direct Bilirubin 0.1 mg/dL (0.0-0.3) Aspartate Amino Transf (AST/SGOT) 12 U/L (10-37) Alanine Aminotransferase (ALT/SGPT) 18 U/L (12-78) Alkaline Phosphatase 85 U/L (50-136) Lactate Dehydrogenase 136 U/L (81-234) C-Reactive Protein, Quantitative < 0.50 mg/L (0.5-3.0) L Total Protein 6.0 g/dL (6.0-8.3) Albumin 3.3 g/dL (3.5-5.0) L Triglycerides Level 113 mg/dL (30-200) Cholesterol Level 109 mg/dL (<200) LDL Cholesterol 51 mg/dL (0-99) HDL Cholesterol 40 mg/dL (29-71) Vitamin B12 Level 743 pg/mL (193-986) Folic Acid (LAB) 8.20 ng/mL (2-20) Procalcitonin < 0.05 ng/mL (0.05-0.5) L Thyroid Stimulating Hormone (TSH) 0.71 uIU/mL (0.36-3.74) # Urine Color LIGHT-YELLOW (YELLOW) Urine Appearance CLEAR (CLEAR) Urine pH 5.5 (5.0-8.0) Urine Specific [place] 1.024 (1.001-1.031) Urine Protein NEGATIVE mg/dL (NEGATIVE) Urine Glucose (UA) NEGATIVE mg/dL (NEGATIVE) Urine Ketones 10 mg/dL (NEGATIVE) H Urine Occult Blood NEGATIVE (NEGATIVE) Urine Nitrate NEGATIVE (NEGATIVE) Urine Bilirubin NEGATIVE mg/dL (NEGATIVE) Urine Urobilinogen 0.2 mg/dL (0.2-1.0) Urine Leukocyte Esterase NEGATIVE [place]/uL Urine RBC 0-1 /HPF (0-1) Urine WBC 0-1 /HPF (0-1) Urine Squamous Epithelial Cells RARE /HPF (0-2) Urine Bacteria RARE /HPF (None Seen) Urine Opiates Screen NEGATIVE (NEGATIVE) Urine Barbiturates Screen NEGATIVE (NEGATIVE) Urine Phencyclidine Screen NEGATIVE (NEGATIVE) Urine Amphetamines Screen NEGATIVE (NEGATIVE) Urine Benzodiazepines Screen NEGATIVE (NEGATIVE) Urine Cocaine Screen NEGATIVE (NEGATIVE) Urine Marijuana (THC) Screen NEGATIVE (NEGATIVE) Troponin I High Sensitivity 7 ng/L (4-75) EKG/XRAY/US/CT/MRI CT Scan Comment PATIENT: HAILY YE MR#: [id number] : 1955 SEX: M AGE: 69 LOCATION: [facility] ORDER 2 STATUS: [facility] REPORT#: [id number] SERVICE [id number] REASON: Dizziness with numbness in hands and feet. More pronounced in left arm ORDERING PHYSICIAN: DARYL OSHEA MD PROCEDURE: HEAD WO - CT HEAD/BRAIN W/O CONTRAST EXAM: CT Head Without IV contrast. CLINICAL HISTORY: Dizziness with numbness in hands and feet. More pronounced in left arm TECHNIQUE: Axial computed tomography images of the head/brain without intravenous contrast. COMPARISON: None provided. FINDINGS: BRAIN: No evidence of acute hemorrhage. No mass lesion. No CT evidence for acute territorial infarct. No midline shift or extra-axial collections. VENTRICLES: No hydrocephalus. ORBITS: The orbits are unremarkable. SINUSES AND MASTOIDS: The paranasal sinuses and mastoid air cells are clear. BONES: No fracture. SOFT TISSUES: Unremarkable. IMPRESSION: No acute intracranial abnormality. /[place] DICTATED BY: VIKRAM ALEJANDRA Jr., MD DATE: 04/14/251148 ELECTRONICALLY SIGNED BY: VIKRAM ALEJANDRA Jr., MD DATE: 04/14/25 114 MRI Comment PATIENT: HAILY YE MR#: [id number] : 1955 SEX: M AGE: 69 LOCATION: [facility] ORDER 4 STATUS: [facility] REPORT#: [id number] SERVICE 2 REASON: Dizziness with numbness in hands and feet. More pronounced in left arm ORDERING PHYSICIAN: DARYL OSHEA MD PROCEDURE: BRAIN WO - MR BRAIN WO CON EXAM: MR Brain Without IV contrast. CLINICAL HISTORY: Dizziness with numbness in hands and feet. More pronounced in left arm TECHNIQUE: Multisequence, multiplanar magnetic resonance images acquired of the brain. CONTRAST: None. COMPARISON: Correlation with CT examination of the head from today. FINDINGS: BRAIN: No restricted diffusion to indicate acute infarction. No intracranial mass or hemorrhage. No midline shift or extra-axial fluid collection. No sulcal effacement. No cerebellar tonsillar ectopia. The central arterial and venous flow voids are patent. VENTRICLES: No hydrocephalus. ORBITS: The orbits are normal. SINUSES AND MASTOIDS: The sinuses and mastoid air cells are clear. BONES: No focal osseous lesion. IMPRESSION: Unremarkable brain MRI. /[place] DICTATED BY: VIKRAM ALEJANDRA Jr., MD DATE: 04/14/251147 ELECTRONICALLY SIGNED BY: VIKRAM ALEJANDRA Jr., MD DATE: 04/14/251147 PATIENT: HAILY YE MR#: [id number] : 1955 SEX: M AGE: 69 LOCATION: [facility] ORDER STATUS: [facility] REPORT#: [id number] SERVICE REASON: Dizziness with numbness in hands and feet. More pronounced in left arm ORDERING PHYSICIAN: DARYL OSHEA MD PROCEDURE: C SPN WO - MR SPINAL CANAL, CERV WO CON EXAM: MR Cervical Spine Without Intravenous Contrast. CLINICAL HISTORY: Dizziness with numbness in the hands and feet. More pronounced in the left arm. TECHNIQUE: Magnetic resonance images of the cervical spine in multiple planes. CONTRAST: None. COMPARISON: Prior MRI cervical spine dated 08/11/24. FINDINGS: The imaged posterior fossa is unremarkable. The craniocervical junction is intact. No acute fracture. Normal lordotic curvature. Multilevel disc desiccation in the cervical spine with a mild to moderate reduction in the disc height at the C5-6 and C6-7 levels. Normal vertebral body and rest of the disc heights. Normal marrow signal of the vertebrae. The cervical cord is in an anatomic location. No abnormal signal involves the cord. No extra-axial masses. The surrounding soft tissues are unremarkable. Level by level, disease is present as follows: C1-C2: No osteoarthritis. C2-C3: No disc bulge or herniation. No neural foraminal, lateral recess, or spinal canal stenosis. C3-C4: No disc bulge or herniation. No neural foraminal, lateral recess, or spinal canal stenosis. C4-C5: No disc bulge or herniation. No neural foraminal, lateral recess, or spinal canal stenosis. C5-C6: 2 mm circumferential disc bulge. Partial effacement of the ventral CSF space. Mild bilateral lateral recess and foraminal narrowing. C6-C7: 3 mm circumferential disc bulge. Partial effacement of the ventral CSF space. Mild to moderate bilateral lateral recess and neural foraminal narrowing. C7-T1: No disc bulge or herniation. No neural foraminal, lateral recess, or spinal canal stenosis. IMPRESSION: Degenerative disc disease in the cervical spine is more pronounced at the C6-7 level. No significant interval change. /[place] DICTATED BY: VIKRAM ALEJANDRA Jr., MD DATE: 04/14/25 1329 ELECTRONICALLY SIGNED BY: VIKRAM ALEJANDRA Jr., MD DATE: 04/14/25 132 [facility] Differential diagnosis: Stroke, cervical spondylosis, central versus peripheral vertigo This patient, 69-year-old gentleman, presented with complaint of dizziness. Patient stated that he has been having dizziness for the past month but this morning, it got worse. He complained of numbness in bilateral feet and hands. Also had episodes of radiating sharp pain in his left arm which come and go. No blurriness of vision or spinning sensation of surroundings. No motor weakness appreciated. No nystagmus. No Intention tremor or resting tremor. CT of brain without contrast and MR brain without contrast were done to evaluate stroke. They were unremarkable and ruled out stroke changes. MR cervical spine was done which showed Degenerative disc disease in the cervical spine which was more pronounced at the C6-7 level. CBC, BMP, coagulation profile and urinalysis were also done which were remarkable only for mild anemia. Patient was given meclizine for dizziness, ketorolac and sodium chloride 500 mL bolus. ED Course Orders Procedure Category Date Status Time Ct Head/Brain W/O CT 04/14/25 Resulted Contrast 09:32 Cbc With Differential LAB 04/14/25 Complete 09:32 Basic Metabolic Panel LAB 04/14/25 Complete 09:32 Pt And Ptt LAB 04/14/25 Complete 09:32 Mr Brain Wo Con MRI 04/14/25 Resulted 09:33 Mr Spinal Canal, Cerv MRI 04/14/25 Resulted Wo Con 09:33 12 Lead Ekg Tracing- EKG 04/14/25 Complete Technical 11:03 Troponin I High LAB 04/14/25 Complete Sensitivity 11:03 0.9% Nacl 500ml PHA 04/14/25 Complete Iv.Soln (Ns 500ml 11:30 Meclizine Hcl 25 Mg PHA 04/14/25 Complete (Antivert 25 Mg) 11:30 Ketorolac PHA 04/14/25 Complete Tromethamine 15mg/Ml 11:30 Urinalysis Profile LAB 04/14/25 Complete 12:40 Current Medications Medications (Trade) Dose Ordered Sig/Beau Route PRN Reason Start Time Stop Time Status Last Admin Dose Admin Ketorolac Tromethamine (toRADol) 15 mg ONCE ONCE IV 04/14/25 11:30 04/14/25 11:31 DC 04/14/25 12:14 Meclizine HCl (ANTIvert 25 mg) 25 mg ONCE ONCE PO 04/14/25 11:30 04/14/25 11:31 DC 04/14/25 12:14 Sodium Chloride 500 ml @ 0 mls/hr ONCE ONCE IV 04/14/25 11:30 04/14/25 11:31 DC 04/14/25 12:14 Vital Signs Date Time Temp Pulse Resp B/P (MAP) Pulse Ox O2 Delivery O2 Flow Rate FiO2 04/14/25 13:09 97.9 59 20 122/69 99 Room Air* 0 21 04/14/25 09:52 97.5 88 20 114/72 99 Room Air* 0 21 04/14/25 08:42 97.7 104 16 125/74 96 Room Air DX & DISP Disposition: Inpatient Decision to Admit Date: Apr 14, 2025 Decision to Admit Time: 14:49 Departure Impression: Primary Impression: Dizziness of unknown cause Additional Impression: Cervical spine disease Condition: Stable Referrals: GHANSHYAM WONG MD (PCP) I have examined patient, & reviewed all documents, & agreed W/ the Diagnosis, and Plan ATTESTATION BY PHYSICIAN I have seen and examined the patient. I reviewed the documentation, medical decision making, and treatment plan as noted by the resident provider above. I agree with the findings and plan of care. MIROSLAVA MEANS MUHAMMAD H MD Apr 14, 2025 10:41 MIROSLAVA MEANS DO Apr 14, 2025 17:35
--- NOTE | 2025-04-14 10:49 | HMCIMG ---
EXAM: MR Brain Without IV contrast. CLINICAL HISTORY: Dizziness with numbness in hands and feet. More pronounced in left arm TECHNIQUE: Multisequence, multiplanar magnetic resonance images acquired of the brain. CONTRAST: None. COMPARISON: Correlation with CT examination of the head from today. FINDINGS: BRAIN: No restricted diffusion to indicate acute infarction. No intracranial mass or hemorrhage. No midline shift or extra-axial fluid collection. No sulcal effacement. No cerebellar tonsillar ectopia. The central arterial and venous flow voids are patent. VENTRICLES: No hydrocephalus. ORBITS: The orbits are normal. SINUSES AND MASTOIDS: The sinuses and mastoid air cells are clear. BONES: No focal osseous lesion. IMPRESSION: Unremarkable brain MRI. /[place]
--- NOTE | 2025-04-14 10:50 | HMCIMG ---
EXAM: CT Head Without IV contrast. CLINICAL HISTORY: Dizziness with numbness in hands and feet. More pronounced in left arm TECHNIQUE: Axial computed tomography images of the head/brain without intravenous contrast. COMPARISON: None provided. FINDINGS: BRAIN: No evidence of acute hemorrhage. No mass lesion. No CT evidence for acute territorial infarct. No midline shift or extra-axial collections. VENTRICLES: No hydrocephalus. ORBITS: The orbits are unremarkable. SINUSES AND MASTOIDS: The paranasal sinuses and mastoid air cells are clear. BONES: No fracture. SOFT TISSUES: Unremarkable. IMPRESSION: No acute intracranial abnormality. /[place]
--- NOTE | 2025-04-14 12:03 | EKG ---
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
[2025-04-14] MEDS: 0.9% NACL 500ML IV.SOLN 500 ML IV ONE (12:14)
--- NOTE | 2025-04-14 12:30 | HMCIMG ---
EXAM: MR Cervical Spine Without Intravenous Contrast. CLINICAL HISTORY: Dizziness with numbness in the hands and feet. More pronounced in the left arm. TECHNIQUE: Magnetic resonance images of the cervical spine in multiple planes. CONTRAST: None. COMPARISON: Prior MRI cervical spine dated 08/11/24. FINDINGS: The imaged posterior fossa is unremarkable. The craniocervical junction is intact. No acute fracture. Normal lordotic curvature. Multilevel disc desiccation in the cervical spine with a mild to moderate reduction in the disc height at the C5-6 and C6-7 levels. Normal vertebral body and rest of the disc heights. Normal marrow signal of the vertebrae. The cervical cord is in an anatomic location. No abnormal signal involves the cord. No extra-axial masses. The surrounding soft tissues are unremarkable. Level by level, disease is present as follows: C1-C2: No osteoarthritis. C2-C3: No disc bulge or herniation. No neural foraminal, lateral recess, or spinal canal stenosis. C3-C4: No disc bulge or herniation. No neural foraminal, lateral recess, or spinal canal stenosis. C4-C5: No disc bulge or herniation. No neural foraminal, lateral recess, or spinal canal stenosis. C5-C6: 2 mm circumferential disc bulge. Partial effacement of the ventral CSF space. Mild bilateral lateral recess and foraminal narrowing. C6-C7: 3 mm circumferential disc bulge. Partial effacement of the ventral CSF space. Mild to moderate bilateral lateral recess and neural foraminal narrowing. C7-T1: No disc bulge or herniation. No neural foraminal, lateral recess, or spinal canal stenosis. IMPRESSION: Degenerative disc disease in the cervical spine is more pronounced at the C6-7 level. No significant interval change. /[place]
[2025-04-14 12:46] LABS: APPEARANCE,URINE CLEAR (CLEAR); GLUCOSE, URINE (UA) NEGATIVE (NEGATIVE); LEUKOCYTE ESTERASE ,URINE NEGATIVE Leu/uL (NEGATIVE); NITRATE,URINE NEGATIVE (NEGATIVE); OCCULT BLOOD,URINE NEGATIVE (NEGATIVE)
[2025-04-14 12:47] LABS: ADD UA MICROSCOPIC YES
[2025-04-14 12:50] LABS: SQUAMOUS EPITHELIAL CELL,UR RARE /HPF (0-2)
--- NOTE | 2025-04-14 14:34 | NUR ---
ER RESIDENT, DR. GURROLA SPOKE TO DR. POSADA IN REGARDS TO PT.
[2025-04-14] MEDS ORDERED: IOHEXOL-350 50ML VIAL IV ONE (14:42)
[2025-04-14 15:00] LABS: % IRON SATURATION 7.6 % (30-44); IRON, SERUM 26.0 mcg/dL (65-175)
--- NOTE | 2025-04-14 15:09 | HP ---
[facility] HISTORY AND PHYSICAL Date of Service: Apr 14, 2025 Time of Service: 14:57 HISTORY OF PRESENT ILLNESS: Date of service: 04/14/2025, patient was seen in ER [facility] This is a 69-year-old male with underlying history of hypertension, hyperlipidemia, type 2 diabetes mellitus, coronary artery disease with prior history of coronary artery bypass grafting in 2021, BPH, history of sleeve gastrectomy, in 2023 who presented to the ER for further evaluation of headache, nonresolving dizziness for about a month, paresthesias involving the left upper extremity and gait instability. Symptoms have been ongoing for about a month, patient states that when ambu lating, he experiences vertiginous/disequilibrium syndrome. He feels dizzy when lying down in changing positions. States that dizziness has worsened over the last several days, he has also noticed that he gets uncontrolled tremors involving the head that worsened the dizziness. He has also noticed some paresthesias and numbness involving the left upper extremity and he states that he has episodes where he gets severe numbness of the left upper extremity. Denies any falls, denies any previous history of strokes. He has followed up with Neurology as outpatient but he is unsure about the cause of the dizziness. He has also noticed some left ear pain as well. Reports having pressure-like headache in addition to the dizziness intermittently. Symptoms have not been resolving. He is followed up with primary care physician who has prescribed symptomatic therapy. Patient denies any syncope and reports that he fell about two months ago. He has been ambulating less due to issues with dizziness and he also feels like he may fall to one side. On presentation to the hospital, patient was noted to be afebrile with T-max of 97.7 F, EKG showed normal sinus rhythm, blood pressure of 125/74. Labs on presentation showed WBC count of 6200, hemoglobin 13.3, platelet count of 992511. BMP showed sodium of 135, potassium 3.7, BUN of 17 , creatinine 1.2, blood glucose of 112, cardiac troponin of 7. Underwent further workup in the ER for evaluation of dizziness and paresthesias with CT of the head which showed no acute intracranial abnormality, MRI brain without contrast showed no acute infarct, MRI of the cervical spine showed degenerative disc disease more pronounced at C6-C7. ER provider spoke with Dr. Miranda, with neurosurgery regards to abnormal blood cervical spine findings on the MRI who recommended outpatient follow up. Due to nonresolving symptoms even after receiving meclizine, and patient continues to have significant dizziness, headache, and paresthesias, request made for patient to be admitted. Patient will be admitted and we will have Neurology follow this patient Patient also states that he feels like a lump in the back of the neck which has been ongoing for the past several weeks. Denies any injury to the neck. He also has been followed by speech for further evaluation of dysphagia as outpatient. Dysphagia has been going on for a month as well. Patient will be started on IV hydration, we will have speech follow up, we will see how patient progresses in the next 24-48 hours. Physical therapy evaluation will be requested. REVIEW OF SYSTEMS CONSTITUTIONAL: malaise NEUROLOGICAL: vertiginous symptoms with dizziness ENT: No hearing loss, otalgia, otorrhea, rhinitis, rhinorrhea, hoarseness, or sore throat. CARDIOVASCULAR: Denies any exertional angina, dyspnea on exertion, orthopnea, paroxysmal nocturnal dyspnea, palpitations, life-threatening arrhythmias, claudication. PULMONARY: Denies any shortness of breath, cough, phlegm/sputum, hemoptysis, pleuritic chest pain. SLEEP: Denies morning headaches, daytime somnolence or napping. Denies difficulty falling asleep, staying asleep, waking from sleep. Denies knowledge of snoring. GASTROINTESTINAL: Denies any type of dysphagia to either liquids or solids. Denies nausea, vomiting, pyrosis, early satiety, abdominal pain, diarrhea, constipation, or changes in stool consistency or caliber. Denies coffee-ground emesis, hematemesis, hematochezia, or melanotic stools. GENITOURINARY: Denies frequency, urgency, nocturia, hematuria or incontinence (Storage/Irritative symptoms.) Low urinary stream, straining to void, urinary intermittency or hesitancy, splitting of the voiding stream, terminal dribbling. ENDOCRINOLOGIC: Denies polyuria, polydipsia, polyphagia or heat/cold intolerances. HEMATOLOGIC: Denies thrombophilia/previous clots, or coagulopathy/bleeding disorders. ONCOLOGIC: Denies personal history of malignancy. DERMATOLOGIC: Denies rashes or pruritus. PSYCHIATRIC: Denies any suicidal or homicidal ideation. Denies hallucinations. Past Medical History: Hyperlipidemia, hypertension, type 2 diabetes mellitus, coronary artery disease, BPH, GERD Past Surgical History: Appendectomy, Cholecystectomy, CABG in 2021, gastric sleeve surgery in 2023, abdominal hernia repair, left arm surgery, Past social history: Patient reports smoking about two packs of cigarettes in a week, he has been smoking for about 40 years, drinks alcohol only socially about once a week, he has previously used cocaine about a year ago but denies any recent cocaine use, he has also tried marijuana gummies to help him sleep but denies any recent use Allergies: Ampicillin, hydrocodone, morphine Home medications: Patient will be bringing list of home medications to be reconciled and updated Coded Allergies: ampicillin (Unverified Allergy, Severe, SWELLING, 07/01/18) Swelling and body rash hydrocodone (Unverified Allergy, Unknown, 01/06/24) morphine (Unverified Adverse Reaction, Intermediate, HALLUCINATIONS, 07/01/18) PHYSICAL EXAM GENERAL APPEARANCE: The patient is awake, alert, and oriented, in no acute cardiopulmonary distress. NEUROLOGICAL: Cranial nerves II-XII grossly intact. Motor is 5/5 in bilateral upper and lower extremities proximal to distal. No sensory deficits. HEENT: Face is symmetric. Pupils are equal and reactive. Extraocular movements are intact. NECK: Supple. No JVD. No thyromegaly. No submental, submandibular, pre- /postauricular, occipital or supraclavicular lymphadenopathy. CHEST: Normal chest expansion. No Telemetry. LUNGS: Absence of any rales, rhonchi or any wheezing. CARDIOVASCULAR: Regular. S1 and S2 normal. No appreciable rubs, murmurs or gallops. ABDOMEN: Soft, nontender, and nondistended. There is no rebound, voluntary guarding, or rigidity. : Deferred. No [place]. EXTREMITIES: Non-edematous and not cyanotic. No clubbing. Good capillary refill. SKIN: No skin breakdown. Vital Sign (Last 24 Hours) 04/14/25 13:09 Temp 97.9 Pulse 59 Resp 20 B/P (MAP) 122/69 Pulse Ox 99 O2 Delivery Room Air* O2 Flow Rate 0 FiO2 21 LABS: Laboratory: Test 04/14/25 11:18 04/14/25 11:12 04/14/25 09:48 Range/Units Troponin I High Sensitivity 7 4-75 ng/L Urine Color LIGHT-YELLOW YELLOW Urine Appearance CLEAR CLEAR Urine pH 5.5 5.0-8.0 Urine Specific [place] 1.024 1.001-1.031 Urine Protein NEGATIVE NEGATIVE mg/dL Urine Glucose (UA) NEGATIVE NEGATIVE mg/dL Urine Ketones 10 H NEGATIVE mg/dL Urine Occult Blood NEGATIVE NEGATIVE Urine Nitrate NEGATIVE NEGATIVE Urine Bilirubin NEGATIVE NEGATIVE mg/dL Urine Urobilinogen 0.2 0.2-1.0 mg/dL Urine Leukocyte Esterase NEGATIVE NEGATIVE Fawad/uL Urine RBC 0-1 0-1 /HPF Urine WBC 0-1 0-1 /HPF Urine Squamous Epithelial Cells RARE 0-2 /HPF Urine Bacteria RARE None Seen /HPF White Blood Count 6.2 4.8-10.8 K/uL Red Blood Count 5.40 4.50-6.20 MIL/uL Hemoglobin 13.3 L 14.0-18.0 g/dL Hematocrit 42.4 42-54 % Mean Corpuscular Volume 78.5 L 79-99 fL Mean Corpuscular Hemoglobin 24.6 L 27.0-33.0 pg Mean Corpuscular Hemoglobin Concent 31.4 L 32.0-36.0 g/dL Red Cell Distribution Width 19.1 H 11.0-15.5 % Platelet Count 183 130-400 K/uL Mean Platelet Volume 9.1 7.5-10.5 fL Immature Granulocyte % (Auto) 0.6 0-1 % Neutrophils (%) (Auto) 67.2 40.0-77.0 % Lymphocytes (%) (Auto) 25.6 21.0-51.0 % Monocytes (%) (Auto) 5.7 3.0-13.0 % Eosinophils (%) (Auto) 0.6 0.0-8.0 % Basophils (%) (Auto) 0.3 0.0-5.0 % Neutrophils # (Auto) 4.1 1.8-7.7 K/uL Lymphocytes # (Auto) 1.6 1.0-4.8 K/uL Monocytes # (Auto) 0.4 0.1-1.0 K/uL Eosinophils # (Auto) 0.04 0.00-0.70 K/uL Basophils # (Auto) 0.02 0.00-0.20 K/uL Absolute Immature Granulocyte (auto 0.04 0-1 K/uL Nucleated Red Blood Cells 0.0 0.0-0.19 % Red Blood Cell Morphology See comments Erythrocyte Sedimentation Rate 17 0-20 MM/HR Prothrombin Time 10.6 9.6-11.6 SEC Prothromb Time International Ratio 1.00 0.85-1.15 Activated Partial Thromboplast Time 27.1 26.3-35.5 SEC Sodium Level 135 L 136-145 mmol/L Potassium Level 3.7 3.5-5.1 mmol/L Chloride Level 102 101-111 mmol/L Carbon Dioxide Level 21 21-32 mmol/L Blood Urea Nitrogen 17 7-18 mg/dL Creatinine 1.2 0.5-1.3 mg/dL Glomerular Filtration Rate Calc 65 >90 mL/min Random Glucose 112 H 70-105 mg/dL Total Calcium 8.9 8.5-10.1 mg/dL Current Medications Medications (Trade) Dose Ordered Sig/Beau Route PRN Reason Start Time Stop Time Status Last Admin Dose Admin Acetaminophen (TYLenol 325MG TAB) 650 mg Q6H PRN PO MILD PAIN (1-3) 04/14/25 14:30 05/14/25 14:29 Folic Acid 1 mg/ Thiamine HCl 100 mg/Sodium Chloride 1,010 ml @ 75 mls/hr Q24H IV 04/14/25 14:30 04/17/25 14:29 Insulin Human Regular (humuLIN R 100 UNIT/ML 3ML) INSULIN SLIDING SCAL... ACHS SQ 04/14/25 16:30 05/14/25 16:29 Ivabradine (Corlanor) 5 mg BID PO 04/14/25 21:00 05/14/25 20:59 Meclizine HCl (ANTIvert 25 mg) 25 mg TID PRN PO DIZZINESS 04/14/25 15:00 05/14/25 14:59 Ondansetron HCl (zoFRAN 4MG INJ) 4 mg Q6H PRN IVP NAUSEA/VOMITING 04/14/25 14:30 05/14/25 14:29 Pantoprazole Sodium (PROTonix 40MG TAB) 40 mg DAILY PO 04/15/25 09:00 05/15/25 08:59 DIAGNOSTICS / RADIOLOGY: SERVICE 8011 REASON: Dizziness with numbness in hands and feet. More pronounced in left arm ORDERING PHYSICIAN: DARYL OSHEA MD PROCEDURE: BRAIN WO - MR BRAIN WO CON EXAM: MR Brain Without IV contrast. CLINICAL HISTORY: Dizziness with numbness in hands and feet. More pronounced in left arm TECHNIQUE: Multisequence, multiplanar magnetic resonance images acquired of the brain. CONTRAST: None. COMPARISON: Correlation with CT examination of the head from today. FINDINGS: BRAIN: No restricted diffusion to indicate acute infarction. No intracranial mass or hemorrhage. No midline shift or extra-axial fluid collection. No sulcal effacement. No cerebellar tonsillar ectopia. The central arterial and venous flow voids are patent. VENTRICLES: No hydrocephalus. ORBITS: The orbits are normal. SINUSES AND MASTOIDS: The sinuses and mastoid air cells are clear. BONES: No focal osseous lesion. IMPRESSION: Unremarkable brain MRI. /[place] DICTATED BY: VIKRAM ALEJANDRA Jr., MD DATE: 04/14/251147 ELECTRONICALLY SIGNED BY: VIKRAM ALEJANDRA Jr., MD DATE: 04/14/25 1148 ASSESSMENT: Acute on chronic nonresolving dizziness with vertiginous symptoms x1 month, POA Left arm paresthesias, POA Nonresolving subacute headache, POA Hypovolemic hyponatremia, POA Dehydration, POA Tobacco use disorder, POA Moderate protein calorie malnutrition, POA Underlying history of recent oropharyngeal dysphagia, POA Left ear pain x1 month, POA Underlying history of hypertension, POA Hyperlipidemia, POA Type 2 diabetes mellitus, POA History of prior history of sleeve gastrectomy in 2023, POA GERD, POA BPH, POA PLAN: Patient will be admitted to medical-surgical floor under telemetry monitoring We will start patient on IV hydration with banana bag with multivitamin s upplementation due to prior history of sleeve gastrectomy We will check thyroid panel, A1c, B12, folic acid, vitamin B6 level Consultation with Neurology will be requested for further evaluation of nonresolving headache, vertiginous symptoms, paresthesias, patient also reports having uncontrolled tremors involving in the head We will follow up with a CT soft tissue of the neck for further evaluation of recent onset dysphagia, patient also reports having a lump in the back of the neck, could be likely he is palpating his cervical vertebrae, we will follow up CT ensure there is nothing pathological We will obtain orthostatic vitals and rule out any orthostatic hypotension We will monitor for any signs of infection, no obvious signs of otitis media noted on the left ear on inspection, there is some ear wax impairing complete evaluation We will have Physical therapy assess with patient mobilization, we will see if patient has any significant gait ataxia with ambulation Patient is being followed by Dr. Vizcaino with Cardiology as outpatient, he is currently being maintained on outpatient treatment with Ivabradine 5 mg twice daily as outpatient which we will resume, monitor closely for any malignant cardiac arrhythmia on telemetry We will follow up results of 2D echocardiogram, carotid artery ultrasound We will see how patient progresses in the next 48-72 hours, All labs will be repeated in the morning, patient reports having had 7 lb weight loss since symptoms have been ongoing over the past one month Urine drug screen will be obtained Date of service: 04/14/2025 Plan of care was discussed with patient at bedside Davy Cabrera MD Advanced Care Planning: Which of the following were discussed: Hospice care: Yes __ No _X_ Therapeutic options: Yes _X_ No __ Advance directives: Yes _X Discussed with who?: Patient Voluntary nature of this service was explained to the patient? Yes _x_ No __ Amount of time spent: 20 minutes DAVY CABRERA MD Apr 14, 2025 15:09
[2025-04-14 15:13] LABS: ASPARTATE AMINOTRANSFERASE 12 U/L (10-37); LACTATE DEHYDROGENASE 136 U/L (81-234); LDL DIRECT 51 mg/dL (0-99); TOTAL PROTEIN, SERUM 6.0 g/dL (6.0-8.3)
--- NOTE | 2025-04-14 15:26 | HMCIMG ---
EXAM: CR Chest, 1 View. CLINICAL HISTORY: r/o any significant infiltrates COMPARISON: X-ray chest 11/13/2023 FINDINGS: LUNGS: There is no mass, infiltrate, or acute pulmonary abnormality. PLEURAL SPACES: No evidence of pleural effusion or pneumothorax. MEDIASTINUM: The cardiomediastinal silhouette is within normal limits. Changes of median sternotomy BONES: No acute osseous abnormality. IMPRESSION: No acute cardiopulmonary pathology is evident. No significant change /[place]
[2025-04-14 15:32] LABS: AMPHET/METH SCREEN,URINE NEGATIVE (NEGATIVE); BARBITURATE SCREEN, URINE NEGATIVE (NEGATIVE); CANNABINOID SCREEN,URINE NEGATIVE (NEGATIVE); COCAINE SCREEN,URINE NEGATIVE (NEGATIVE)
--- NOTE | 2025-04-14 16:14 | NUR ---
DCP:HOME Pt currently lives at home with his Lindsay Tesfaye [phone]. Pt does not have DME, home health, or provider services. states that he can complete tasks on his own however she is around in the event that he needs assistance. PCP is Dr.Samuel Reyes and uses [facility] for any RX needs. At PR pt will want to go home and family can assist. Addendum: 04/14/25 at 1619 by COREY PÉREZ SS Amended: Links added.
--- NOTE | 2025-04-14 16:30 | NUR ---
BEDSIDE SWALLOW EVAL COMPLETED. No s/s of aspiration. Recommend easy to chew solids, thin liquids and pills whole with liquids as tolerated. COMPENSATORY STRATEGIES: 1. sit upright during oral intake 2. small bites/sips 3. slow oral intake NOTE: Pt completed MBSS as outpatient on 02/24/2025 with recommendations for easy to chew solids and thin liquids. Pt did aspiration with pudding thick textures followed by an immediate cough response. As per patient, he eats anything that is soft texture and meds whole. During this admission, patient presented with no infiltrates on chest xray. Pt however continues to complain of odynophagia during the swallow due to neck pain. Dr. Davy Cabrera notified. HOTEL BREAKFAST ATTENDANT reviewed results and recommendations with patient and nurse Neftali. No family present at time of eval. HOTEL BREAKFAST ATTENDANT educated patient on risks and consequences of aspiration. Speech therapy not warranted at this time. All questions answered. Addendum: 04/14/[address] JYAA CASTRO Amended: Links added.
[2025-04-14] MEDS ORDERED: TOPI-97 PO (16:58)
[2025-04-14] MEDS ORDERED: TIZA-194 PO (16:58)
[2025-04-14] MEDS ORDERED: LINA290C PO (16:58)
[2025-04-14] MEDS ORDERED: ROSU20TA98 PO (16:58)
[2025-04-14] MEDS ORDERED: PANT40TA54 PO (16:58)
[2025-04-14] MEDS ORDERED: ISOS30TA92 PO (16:58)
[2025-04-14] MEDS ORDERED: FAMO40TA7 PO (16:58)
[2025-04-14] MEDS ORDERED: MECL-302 PO (16:58)
[2025-04-14] MEDS ORDERED: CYCL7.5T27 PO (16:58)
[2025-04-14] MEDS: FOLic ACID 5 MG/ML VIAL 1 MG, THIAMINE HCL 100 MG in 0.9%NACL 1000ML 1,000 ML IV SCH (17:11)
[2025-04-14] MEDS: PoTASSium chloRIDE 20MEQ ER 20 MEQ ERTAB PO PRN (17:20)
[2025-04-14 19:00] VITALS: BP 134/72; PULSE 72; RESP 19; TEMP 98.6
[2025-04-14 20:00] VITALS: O2SAT 96
[2025-04-14] MEDS: IVABRADINE HCL 5 MG TABLET PO SCH (21:00)
[2025-04-14] MEDS: ISOSORBIDE MONO 30MG SR TAB PO SCH (21:06)
[2025-04-14] MEDS: FAMOTIDINE 20MG TAB PO SCH (21:07)
[2025-04-14 21:59] VITALS: PULSE 68; RESP 18
[2025-04-14 22:00] VITALS: PULSE 68; RESP 18; O2SAT 96
[2025-04-14 23:27] VITALS: PULSE 81; RESP 18
[2025-04-14 23:28] VITALS: PULSE 81; RESP 18; O2SAT 99
[2025-04-15] VITALS (9 sets, daily range): BP systolic 93–141; BP diastolic 57–78; PULSE 66–98; RESP 16–22; TEMP 98.3–98.9; O2SAT 96–100
[2025-04-15 04:31] LABS: IMMATURE GRANULOCYTE ABSOLUTE 0.02 K/uL (0-1); NUCLEATED RED BLOOD CELLS 0.0 % (0.0-0.19); PLATELET COUNT (AUTO) 175 K/uL (130-400); RED BLOOD CELL COUNT(AUTO) 4.49 MIL/uL (4.50-6.20); RED CELL DISTRIBUTION WIDTH 18.5 % (11.0-15.5); WHITE BLOOD COUNT (AUTO) 6.7 K/uL (4.8-10.8)
[2025-04-15 04:47] LABS: CREATININE 0.9 mg/dL (0.5-1.3); GLOMERULAR FILTR. RATE CALC 92.0 mL/min (>90); GLUCOSE,RANDOM 103.0 mg/dL (70-105); SODIUM SERUM 137.0 mmol/L (136-145); UREA NITROGEN, BLOOD 20.0 mg/dL (7-18)
[2025-04-15] MEDS: PoTASSium chl 10% ELIXIR 20MEQ 20 MEQ/15 ML UDCUP PO PRN (05:47)
--- NOTE | 2025-04-15 07:09 | PN ---
[facility] PROGRESS NOTE Date of Service: Apr 15, 2025 Time of Service: 07:08 SUBJECTIVE: This is a 69-year-old male with underlying history of hypertension, hyperlipidemia, type 2 diabetes mellitus, coronary artery disease with prior history of coronary artery bypass grafting in 2021, BPH, history of we will sleeve gastrectomy, in 2023 who presented to the ER for further evaluation of headache, nonresolving dizziness for about a month, paresthesias involving the left upper extremity and gait instability. Symptoms have been ongoing for about a month, patient states that when ambulating, he experiences vertiginous/disequilibrium syndrome. He feels dizzy when lying down in changing positions. States that dizziness has worsened over the last several days, he has also noticed that he gets uncontrolled tremors involving the head that worsened the dizziness. He has also noticed some paresthesias and numbness involving the left upper extremity and he states that he has episodes where he gets severe numbness of the left upper extremity. Denies any falls, denies any previous history of strokes. He has followed up with Neurology as outpatient but he is unsure about the cause of the dizziness. He has also noticed some left ear pain as well. Reports having pressure-like headache in addition to the dizziness intermittently. Symptoms have not been resolving. He is followed up with primary care physician who has prescribed symptomatic therapy. Patient denies any syncope and reports that he fell about two months ago. He h as been ambulating less due to issues with dizziness and he also feels like he may fall to one side. On presentation to the hospital, patient was noted to be afebrile with T-max of 97.7 F, EKG showed normal sinus rhythm, blood pressure of 125/74. Labs on presentation showed WBC count of 6200, hemoglobin 13.3, platelet count of 474756. BMP showed sodium of 135, potassium 3.7, BUN of 17 , creatinine 1.2, blood glucose of 112, cardiac troponin of 7. Underwent further workup in the ER for evaluation of dizziness and paresthesias with CT of the head which showed no acute intracranial abnormality, MRI brain without contrast showed no acute infarct, MRI of the cervical spine showed degenerative disc disease more pronounced at C6-C7. ER provider spoke with Dr. Miranda, with neurosurgery regards to abnormal blood cervical spine findings on the MRI who recommended outpatient follow up. Due to nonresolving symptoms even after receiving meclizine, and patient continues to have significant dizziness, headache, and paresthesias, request made for patient to be admitted. Patient will be admitted and we will have Neurology follow this patient Patient also states that he feels like a lump in the back of the neck which has been ongoing for the past several weeks. Denies any injury to the neck. He also has been followed by speech for further evaluation of dysphagia as outpatient. Dysphagia has been going on for a month as well. Patient will be started on IV hydration, we will have speech follow up, we will see how patient progresses in the next 24-48 hours. Physical therapy evaluation will be requested. 04/15/2025: He was evaluated bedside this morning. He is AAO x3. he is hemodynamically stable. He complained of dizziness and episodic uncontrolled head movement [id number] associated with tinnitus left ear fullness. He also complains of mass in her posterior neck and dysphagia. Remarkable labs are WBC 6.2 Hemoglobin 13.3 Sodium 137, potassium 3.4, magnesium 1.80, corrected calcium 8.4, [id number] saturation 7.6 vitamin B12 743 folic acid 8.2 , HbA1c 6.6. Neurology , speech and physical therapy consulted. CT soft tissue neck revealed the villous tissue mass in the supra Kulwinder and then tried neck space or enlarged lymph nodes, moderate degenerative changes in cervical spacer C5-C6 and C6-C7, small 6 mm hypodense lesion in the left lobe of thyroid gland likely a colloid nodule. Repeat duplex revealed to donate% stenosis on bilateral bulb of the carotid arteries. Echocardiogram pending. Rest of the plan as discussed below REVIEW OF SYSTEMS CONSTITUTIONAL: malaise NEUROLOGICAL: vertiginous symptoms with dizziness ENT: No hearing loss, otalgia, otorrhea, rhinitis, rhinorrhea, hoarseness, or sore throat. CARDIOVASCULAR: Denies any exertional angina, dyspnea on exertion, orthopnea, paroxysmal nocturnal dyspnea, palpitations, life-threatening arrhythmias, claudication. PULMONARY: Denies any shortness of breath, cough, phlegm/sputum, hemoptysis, pleuritic chest pain. SLEEP: Denies morning headaches, daytime somnolence or napping. Denies difficulty falling asleep, staying asleep, waking from sleep. Denies knowledge of snoring. GASTROINTESTINAL: Denies any type of dysphagia to either liquids or solids. Denies nausea, vomiting, pyrosis, early satiety, abdominal pain, diarrhea, constipation, or changes in stool consistency or caliber. Denies coffee-ground emesis, hematemesis, hematochezia, or melanotic stools. GENITOURINARY: Denies frequency, urgency, nocturia, hematuria or incontinence (Storage/Irritative symptoms.) Low urinary stream, straining to void, urinary intermittency or hesitancy, splitting of the voiding stream, terminal dribbling. ENDOCRINOLOGIC: Denies polyuria, polydipsia, polyphagia or heat/cold intolerances. HEMATOLOGIC: Denies thrombophilia/previous clots, or coagulopathy/bleeding disorders. ONCOLOGIC: Denies personal history of malignancy. DERMATOLOGIC: Denies rashes or pruritus. PSYCHIATRIC: Denies any suicidal or homicidal ideation. Denies hallucinations. PHYSICAL EXAM GENERAL APPEARANCE: The patient is awake, alert, and oriented, in no acute cardiopulmonary distress. NEUROLOGICAL: Cranial nerves II-XII grossly intact. Motor is 5/5 in bilateral upper and lower extremities proximal to distal. Diminished Sensation on the left upper extremity. HEENT: Face is symmetric. Pupils are equal and reactive. Extraocular movements are intact. NECK: Supple. No JVD. No thyromegaly. No submental, submandibular, pre- /postauricular, occipital or supraclavicular lymphadenopathy. CHEST: Normal chest expansion. No Telemetry. LUNGS: Absence of any rales, rhonchi or any wheezing. CARDIOVASCULAR: Regular. S1 and S2 normal. No appreciable rubs, murmurs or gallops. ABDOMEN: Soft, nontender, and nondistended. There is no rebound, voluntary guarding, or rigidity. : Deferred. No [place]. EXTREMITIES: Non-edematous and not cyanotic. No clubbing. Good capillary refill. SKIN: No skin breakdown. Vital Signs (last 8hr) Date Time Temp Pulse Resp B/P (MAP) Pulse Ox O2 Delivery O2 Flow Rate FiO2 04/15/25 06:10 70 18 N/Cannula Low lpm 2.0 28 04/15/25 06:10 70 18 04/15/25 04:00 98.6 66 22 93/57 98 Room Air 04/15/25 00:00 99.0 98 21 99/68 97 Room Air 04/14/25 23:28 81 18 N/Cannula Low lpm 2.0 04/14/25 23:27 81 18 LABS: Laboratory: Test 04/15/25 04:10 04/14/25 20:19 04/14/25 11:18 04/14/25 11:12 Range/Units White Blood Count 6.7 4.8-10.8 K/uL Red Blood Count 4.49 L 4.50-6.20 MIL/uL Hemoglobin 11.2 L 14.0-18.0 g/dL Hematocrit 35.4 L 42-54 % Mean Corpuscular Volume 78.8 L 79-99 fL Mean Corpuscular Hemoglobin 24.9 L 27.0-33.0 pg Mean Corpuscular Hemoglobin Concent 31.6 L 32.0-36.0 g/dL Red Cell Distribution Width 18.5 H 11.0-15.5 % Platelet Count 175 130-400 K/uL Mean Platelet Volume 9.3 7.5-10.5 fL Immature Granulocyte % (Auto) 0.3 0-1 % Neutrophils (%) (Auto) 72.4 40.0-77.0 % Lymphocytes (%) (Auto) 20.2 L 21.0-51.0 % Monocytes (%) (Auto) 5.7 3.0-13.0 % Eosinophils (%) (Auto) 1.1 0.0-8.0 % Basophils (%) (Auto) 0.3 0.0-5.0 % Neutrophils # (Auto) 4.8 1.8-7.7 K/uL Lymphocytes # (Auto) 1.3 1.0-4.8 K/uL Monocytes # (Auto) 0.4 0.1-1.0 K/uL Eosinophils # (Auto) 0.07 0.00-0.70 K/uL Basophils # (Auto) 0.02 0.00-0.20 K/uL Absolute Immature Granulocyte (auto 0.02 0-1 K/uL Nucleated Red Blood Cells 0.0 0.0-0.19 % Sodium Level 137 136-145 mmol/L Potassium Level 3.4 L 3.5-5.1 mmol/L Chloride Level 106 101-111 mmol/L Carbon Dioxide Level 22 21-32 mmol/L Blood Urea Nitrogen 20 H 7-18 mg/dL Creatinine 0.9 0.5-1.3 mg/dL Glomerular Filtration Rate Calc 92 >90 mL/min Random Glucose 103 70-105 mg/dL Total Calcium 7.8 L 8.5-10.1 mg/dL Magnesium Level 1.80 1.80-2.40 mg/dL Whole Blood Glucose 152 #H 70-110 MG/DL Troponin I High Sensitivity 7 4-75 ng/L Urine Color LIGHT-YELLOW YELLOW Urine Appearance CLEAR CLEAR Urine pH 5.5 5.0-8.0 Urine Specific [place] 1.024 1.001-1.031 Urine Protein NEGATIVE NEGATIVE mg/dL Urine Glucose (UA) NEGATIVE NEGATIVE mg/dL Urine Ketones 10 H NEGATIVE mg/dL Urine Occult Blood NEGATIVE NEGATIVE Urine Nitrate NEGATIVE NEGATIVE Urine Bilirubin NEGATIVE NEGATIVE mg/dL Urine Urobilinogen 0.2 0.2-1.0 mg/dL Urine Leukocyte Esterase NEGATIVE NEGATIVE Fawad/uL Urine RBC 0-1 0-1 /HPF Urine WBC 0-1 0-1 /HPF Urine Squamous Epithelial Cells RARE 0-2 /HPF Urine Bacteria RARE None Seen /HPF Urine Opiates Screen NEGATIVE NEGATIVE Urine Barbiturates Screen NEGATIVE NEGATIVE Urine Phencyclidine Screen NEGATIVE NEGATIVE Urine Amphetamines Screen NEGATIVE NEGATIVE Urine Benzodiazepines Screen NEGATIVE NEGATIVE Urine Cocaine Screen NEGATIVE NEGATIVE Urine Marijuana (THC) Screen NEGATIVE NEGATIVE Test 04/14/25 09:48 Range/Units Red Blood Cell Morphology See comments Erythrocyte Sedimentation Rate 17 0-20 MM/HR Prothrombin Time 10.6 9.6-11.6 SEC Prothromb Time International Ratio 1.00 0.85-1.15 Activated Partial Thromboplast Time 27.1 26.3-35.5 SEC Hemoglobin A1c 6.6 H 4.0-6.0 % Estimated Average Glucose (eAG) 143 H 70-126 mg/dL Iron Level 26 L 65-175 mcg/dL Total Iron Binding Capacity 340 250-450 mcg/dL Percent Iron Saturation 7.6 L 30-44 % Ferritin 17 L 30-400 ng/mL Total Bilirubin 0.3 0.2-1.0 mg/dL Direct Bilirubin 0.1 0.0-0.3 mg/dL Aspartate Amino Transf (AST/SGOT) 12 10-37 U/L Alanine Aminotransferase (ALT/SGPT) 18 12-78 U/L Alkaline Phosphatase 85 50-136 U/L Lactate Dehydrogenase 136 81-234 U/L C-Reactive Protein, Quantitative < 0.50 L 0.5-3.0 mg/L Total Protein 6.0 6.0-8.3 g/dL Albumin 3.3 L 3.5-5.0 g/dL Triglycerides Level 113 30-200 mg/dL Cholesterol Level 109 <200 mg/dL LDL Cholesterol 51 0-99 mg/dL HDL Cholesterol 40 29-71 mg/dL Vitamin B12 Level 743 193-986 pg/mL Folic Acid (LAB) 8.20 2-20 ng/mL Procalcitonin < 0.05 L 0.05-0.5 ng/mL Thyroid Stimulating Hormone (TSH) 0.71 # 0.36-3.74 uIU/mL Current Medications Medications (Trade) Dose Ordered Sig/Beau Route PRN Reason Start Time Stop Time Status Last Admin Dose Admin Acetaminophen (TYLenol 325MG TAB) 650 mg Q6H PRN PO MILD PAIN (1-3) 04/14/25 14:30 05/14/25 14:29 04/14/25 17:21 650 MG Albuterol (DUOneb) 1 udvial [id number] IH 04/14/25 21:30 05/14/25 21:29 04/15/25 06:08 1 UDVIAL Atorvastatin Calcium (LIPItor 40MG) 80 mg HS PO 04/14/25 21:00 05/14/25 20:59 04/14/25 21:07 80 MG Famotidine (Pepcid 20mg Tab) 40 mg HS PO 04/14/25 21:00 05/14/25 20:59 04/14/25 21:07 40 MG Folic Acid 1 mg/ Thiamine HCl 100 mg/Sodium Chloride 1,010 ml @ 75 mls/hr Q24H IV 04/14/25 14:30 04/17/25 14:29 04/14/25 17:11 75 MLS/HR Home Med (Home Medication) DAILY PO 04/15/25 09:00 05/15/25 08:59 Home Med (Home Medication) HS PO 04/14/25 21:00 05/14/25 20:59 Hydromorphone HCl (DiLAUDid 0.5MG INJ) 0.2 mg Q4H PRN IVP SEVERE PAIN (7-10) 04/14/25 20:30 04/19/25 20:29 04/14/25 21:06 0.2 MG Insulin Human Regular (humuLIN R 100 UNIT/ML 3ML) INSULIN SLIDING SCAL... ACHS SQ 04/14/25 16:30 05/14/25 16:29 Isosorbide Mononitrate (Imdur 30mg Sr) 30 mg HS PO 04/14/25 21:00 05/14/25 20:59 04/14/25 21:06 30 MG Ivabradine (Corlanor) 5 mg BID PO 04/14/25 21:00 05/14/25 20:59 Magnesium Sulfate 50 ml @ 0 mls/hr PROTOCOL IV 04/14/25 15:00 05/14/25 14:59 Meclizine HCl (ANTIvert 25 mg) 25 mg TID PRN PO DIZZINESS 04/14/25 15:00 05/14/25 14:59 04/14/25 21:07 25 MG Ondansetron HCl (zoFRAN 4MG INJ) 4 mg Q6H PRN IVP NAUSEA/VOMITING 04/14/25 14:30 05/14/25 14:29 04/14/25 18:19 4 MG Pantoprazole Sodium (PROTonix 40MG TAB) 40 mg DAILY PO 04/15/25 09:00 05/15/25 08:59 Potassium Chloride 100 ml @ 100 mls/hr AD PRN IV POTASSIUM PROTOCOL 04/14/25 15:00 05/14/25 14:59 Potassium Chloride (K-Dur/Klor-Con 20meq) 20 meq AD PRN PO POTASSIUM PROTOCOL 04/14/25 15:00 05/14/25 14:59 04/14/25 17:20 20 MEQ Potassium Chloride (KCl 10% Elixir 20meq/15ml) 20 meq AD PRN PO POTASSIUM PROTOCOL 04/14/25 15:00 05/14/25 14:59 04/15/25 05:47 20 MEQ Tamsulosin HCl (FloMAX) 0.4 mg HS PO 04/14/25 21:00 05/14/25 20:59 04/14/25 21:07 0.4 MG Topiramate (TopaMAX) 50 mg BID PO 04/14/25 21:00 05/14/25 20:59 04/14/25 21:00 50 MG DIAGNOSTICS / RADIOLOGY:PATIENT: HAILY YE MR#: [id number] : 1955 SEX: M AGE: 69 LOCATION: ED ORDER 2 STATUS: REG ER REPORT#: [id number] SERVICE REASON: Dizziness with numbness in hands and feet. More pronounced in left arm ORDERING PHYSICIAN: DARYL OSHEA MD PROCEDURE: HEAD WO - CT HEAD/BRAIN W/O CONTRAST EXAM: CT Head Without IV contrast. CLINICAL HISTORY: Dizziness with numbness in hands and feet. More pronounced in left arm TECHNIQUE: Axial computed tomography images of the head/brain without intravenous contrast. COMPARISON: None provided. FINDINGS: BRAIN: No evidence of acute hemorrhage. No mass lesion. No CT evidence for acute territorial infarct. No midline shift or extra-axial collections. VENTRICLES: No hydrocephalus. ORBITS: The orbits are unremarkable. SINUSES AND MASTOIDS: The paranasal sinuses and mastoid air cells are clear. BONES: No fracture. SOFT TISSUES: Unremarkable. IMPRESSION: No acute intracranial abnormality. /Thompson DICTATED BY: VIKRAM ALEJANDRA Jr., MD DATE: 04/14/251148 ELECTRONICALLY SIGNED BY: VIKRAM ALEJANDRA Jr., MD DATE: 04/14/251148 PATIENT: HAILY YE MR#: [id number] : 1955 SEX: M AGE: 69 LOCATION: [facility] ORDER STATUS: REG ER REPORT#: [id number] SERVICE 2 REASON: Dizziness with numbness in hands and feet. More pronounced in left arm ORDERING PHYSICIAN: DARYL OSHEA MD PROCEDURE: BRAIN WO - MR BRAIN WO CON EXAM: MR Brain Without IV contrast. CLINICAL HISTORY: Dizziness with numbness in hands and feet. More pronounced in left arm TECHNIQUE: Multisequence, multiplanar magnetic resonance images acquired of the brain. CONTRAST: None. COMPARISON: Correlation with CT examination of the head from today. FINDINGS: BRAIN: No restricted diffusion to indicate acute infarction. No intracranial mass or hemorrhage. No midline shift or extra-axial fluid collection. No sulcal effacement. No cerebellar tonsillar ectopia. The central arterial and venous flow voids are patent. VENTRICLES: No hydrocephalus. ORBITS: The orbits are normal. SINUSES AND MASTOIDS: The sinuses and mastoid air cells are clear. BONES: No focal osseous lesion. IMPRESSION: Unremarkable brain MRI. /Thompson DICTATED BY: VIKRAM ALEJANDRA Jr., MD DATE: 04/14/251147 ELECTRONICALLY SIGNED BY: VIKRAM ALEJANDRA Jr., MD DATE: 04/14/251147 PATIENT: HAILY YE MR#: [id number] : 1955 SEX: M AGE: 69 LOCATION: [facility] ORDER 4 STATUS: [facility] REPORT#: [id number] SERVICE 2 REASON: Dizziness with numbness in hands and feet. More pronounced in left arm ORDERING PHYSICIAN: DARYL OSHEA MD PROCEDURE: C SPN WO - MR SPINAL CANAL, CERV WO CON EXAM: MR Cervical Spine Without Intravenous Contrast. CLINICAL HISTORY: Dizziness with numbness in the hands and feet. More pronounced in the left arm. TECHNIQUE: Magnetic resonance images of the cervical spine in multiple planes. CONTRAST: None. COMPARISON: Prior MRI cervical spine dated 08/11/24. FINDINGS: The imaged posterior fossa is unremarkable. The craniocervical junction is intact. No acute fracture. Normal lordotic curvature. Multilevel disc desiccation in the cervical spine with a mild to moderate reduction in the disc height at the C5-6 and C6-7 levels. Normal vertebral body and rest of the disc heights. Normal marrow signal of the vertebrae. The cervical cord is in an anatomic location. No abnormal signal involves the cord. No extra-axial masses. The surrounding soft tissues are unremarkable. Level by level, disease is present as follows: C1-C2: No osteoarthritis. C2-C3: No disc bulge or herniation. No neural foraminal, lateral recess, or spinal canal stenosis. C3-C4: No disc bulge or herniation. No neural foraminal, lateral recess, or spinal canal stenosis. C4-C5: No disc bulge or herniation. No neural foraminal, lateral recess, or spinal canal stenosis. C5-C6: 2 mm circumferential disc bulge. Partial effacement of the ventral CSF space. Mild bilateral lateral recess and foraminal narrowing. C6-C7: 3 mm circumferential disc bulge. Partial effacement of the ventral CSF space. Mild to moderate bilateral lateral recess and neural foraminal narrowing. C7-T1: No disc bulge or herniation. No neural foraminal, lateral recess, or spinal canal stenosis. IMPRESSION: Degenerative disc disease in the cervical spine is more pronounced at the C6-7 level. No significant interval change. /Thompson DICTATED BY: VIKRAM ALEJANDRA Jr., MD DATE: 04/14/251328 ELECTRONICALLY SIGNED BY: VIKRAM ALEJANDRA Jr., MD DATE: 04/14/251328 PATIENT: HAILY YE MR#: [id number] : 1955 SEX: M AGE: 69 LOCATION: [facility] ORDER 28 STATUS: ADM IN REPORT#: [id number] SERVICE 25 REASON: r/o any significant infiltrates ORDERING PHYSICIAN: NABEEL KENT MD PROCEDURE: CXR1VW - CHEST 1VW EXAM: CR Chest, 1 View. CLINICAL HISTORY: r/o any significant infiltrates COMPARISON: X-ray chest 11/13/2023 FINDINGS: LUNGS: There is no mass, infiltrate, or acute pulmonary abnormality. PLEURAL SPACES: No evidence of pleural effusion or pneumothorax. MEDIASTINUM: The cardiomediastinal silhouette is within normal limits. Changes of median sternotomy BONES: No acute osseous abnormality. IMPRESSION: No acute cardiopulmonary pathology is evident. No significant change /Thompson DICTATED BY: COREY SIDDIQUI MD DATE: 04/14/251624 ELECTRONICALLY SIGNED BY: COREY SIDDIQUI MD DATE: 04/14/251624 PATIENT: HAILY YE MR#: [id number] : 1955 SEX: M AGE: 69 LOCATION: [facility] ORDER 1433 STATUS: ADM IN REPORT#: [id number] SERVICE 1429 REASON: dysphagia with swallowing, pt feels a lump in back of neck, left ear pain ORDERING PHYSICIAN: NABEEL KENT MD PROCEDURE: [id number] - CT NECK SOFT TISSUE W/WO CONTR EXAM: CT Neck without and with IV Contrast CLINICAL HISTORY: Dysphagia: difficulty in swallowing, feels a lump in the back of the neck. TECHNIQUE: Contiguous axial images were obtained through the neck. Reconstructed imaging. Reformatted/MPR images were performed. A CT scan is done according to ALARA (As Low as Reasonably Achievable) with contrast. COMPARISON: None. FINDINGS: Included intracranial substances, orbits, and paranasal sinuses are grossly unremarkable. The nasopharynx, oropharynx, oral cavity, hypopharynx, and larynx are grossly unremarkable. Unremarkable epiglottis, vallecula, aryepiglottic folds, pyriform sinuses, and true vocal cords. The hyoid bone, thyroid, cricoid, and arytenoid cartilages are unremarkable. Mild heterogeneous coarse attenuation of the thyroid gland demonstrates a 6 mm hypodense lesion in the posterior aspect of the left lobe, which is probably a colloid nodule. Parotid and submandibular glands are grossly unremarkable. No pathologically enlarged lymph nodes. Atherosclerotic calcification of the bilateral carotid bulbs, right more than left, approximately 50% narrowing of the right carotid bulb, and 40-50% narrowing of the origin of the right internal carotid artery. Visualized, the lung apices are grossly clear. No acute osseous abnormality.Moderate degenerative changes in the cervical spine at C5-C6 and C6-C7 with a prominent anterior osteophyte impinging on the posterior pharyngeal wall. Poststernotomy status. Atherosclerotic calcification of the aortic arch. IMPRESSION: No abnormal soft tissue mass in the suprahyoid and infrahyoid neck spaces or enlarged lymph nodes. Moderate degenerative changes in the cervical spine at C5-C6 and C6-C7 with a prominent anterior osteophyte impinging on the posterior pharyngeal wall. Mild heterogeneous coarse attenuation of the thyroid gland and a small 6 mm hypodense lesion in the left lobe of the thyroid gland is probably a colloid nodule. Atherosclerotic calcification of the bilateral carotid bulbs, right more than left, approximately 50% narrowing of the right carotid bulb, and 40-50% narrowing of the origin of the right internal carotid artery. /Thompson DICTATED BY: TOBIAS ROSS MD DATE: 04/15/251403 ELECTRONICALLY SIGNED BY: TOBIAS ROSS MD DATE: 04/15/251403 PATIENT: HAILY YE MR#: [id number] : 1955 SEX: M AGE: 69 LOCATION: [facility] ORDER 50 STATUS: ADM IN [facility] REPORT#: [id number] SERVICE 145 REASON: dizziness, r/o significant carotid artery stenosis ORDERING PHYSICIAN: NABEEL KENT MD PROCEDURE: CAROTID - US CAROTID DUPLEX EXAMINATION: DUPLEX ULTRASOUND EXAMINATION OF THE BILATERAL CAROTID AND VERTEBRAL ARTERIES. CLINICAL HISTORY: Dizziness. To rule out significant carotid artery stenosis. COMPARISON: Carotid Doppler dated 11/14/2023. TECHNIQUE: Real-time ultrasound scan of the bilateral carotid and vertebral arteries, 2-D grayscale, with color Doppler flow and spectral waveform analysis. FINDINGS: Color and spectral Doppler interrogation of the carotid vessels on the right demonstrate peak systolic velocities as follows: CCA (Proximal, mid, and distal): 67, 58, and 40 cm/s respectively. Bulb: 67 cm/s. ECA: 71 cm/s. ICA (Proximal, mid, and distal): 88, 75, and 74 cm/s respectively. Vertebral artery demonstrates antegrade flow: 43 cm/s. Right ICA/CCA ratio: 1.3 Peak systolic velocities on the left are as follows: CCA (Proximal, mid, and distal): 62, 66, and 69 cm/s respectively. Bulb: 40 cm/s. ECA: 61 cm/s. ICA (Proximal, mid, and distal): 64, 80, and 67 cm/s respectively. Vertebral artery demonstrates antegrade flow: 29 cm/s. Left ICA/CCA ratio: 1.2 Both the common carotid arteries and their branches reveal mild intimal thickening. There is a calcified plaque in the right bulb causing about 10% to 20% diameter stenosis. There are calcified plaques in the left bulb and distal common carotid artery causing about 10% to 20% diameter stenosis. IMPRESSION: Mild intimal thickening in the bilateral carotid arteries and their branches. Plaques as described. There is no significant flow limiting lesions in the remainder of the arteries. No sigificant interval change. /Thompson DICTATED BY: TOBIAS ROSS MD DATE: 04/15/251145 ELECTRONICALLY SIGNED BY: TOBIAS ROSS MD DATE: 04/15/251145 ASSESSMENT: Acute on chronic nonresolving dizziness with vertiginous symptoms x1 month, POA Left arm paresthesias, POA Nonresolving subacute headache, POA Hypovolemic hyponatremia, POA Dehydration, POA Tobacco use disorder, POA Moderate protein calorie malnutrition, POA Underlying history of recent oropharyngeal dysphagia, POA Left ear pain x1 month, POA Underlying history of hypertension, POA Hyperlipidemia, POA Type 2 diabetes mellitus, POA History of prior history of sleeve gastrectomy in 2023, POA GERD, POA BPH, POA PLAN: Patient admitted to medical-surgical floor under telemetry monitoring CT soft tissue neck revealed the villous tissue mass in the supra Kulwinder and then tried neck space or enlarged lymph nodes, moderate degenerative changes in cervical spacer C5-C6 and C6-C7, small 6 mm hypodense lesion in the left lobe of thyroid gland likely a colloid nodule. Repeat duplex revealed to donate% stenosis on bilateral bulb of the carotid arteries. TSH 0.71 Vitamin B12 743, folic acid 8.2 Magnesium 1.8, corrected calcium 8.4, urine drug test negative -Started patient on IV hydration with banana bag with multivitamin supplementation due to prior history of sleeve gastrectomy -Neurology recommended referral to ENT for evaluation of left ear problem being a cause of peripheral vertigo. Continue meclizine 25 mg per oral t.i.d. as PRN for dizziness. For chronic daily tension headache continue topiramate 50 mg per oral b.i.d.. -Will obtain orthostatic vitals and rule out any orthostatic hypotension -Will monitor for any signs of infection, no obvious signs of otitis media noted on the left ear on inspection, there is some ear wax impairing complete evaluation -Will have Physical therapy assess with patient mobilization, we will see if patient has any significant gait ataxia with ambulation -Will follow up results of 2D echocardiogram -Patient is being followed by Dr. Vizcaino with Cardiology as outpatient, he is currently being maintained on outpatient treatment with Ivabradine 5 mg twice daily as outpatient which we will resume, monitor closely for any malignant cardiac arrhythmia on telemetry PROPHYLAXIS FAMOTIDINE DVT PROPHYLAXIS SCD. ATTESTATION BY PHYSICIAN I have seen and examined the patient. I reviewed the documentation, medical decision making, and treatment plan as noted by the mid-level provider above. I agree with the findings and plan of care. DANIELLE YAN MD, SUNIL MD Apr 15, 2025 07:09
--- NOTE | 2025-04-15 07:15 | CONS ---
CONSULTATION NOTE Date of Service: Apr 15, 2025 Reason for Consultation: Evaluation of dizziness headaches Requesting Physician: Dr Cabrera HISTORY OF PRESENT ILLNESS: Mr. Tesfaye is a 69-year-old right-handed male with a history of hypertension, dyslipidemia, high cholesterol, type 2 diabetes, coronary artery disease, CABG in 2021, BPH, and sleep gastrectomy, presenting with dizziness, left ear pain, head tremor, and headaches. The patient reports experiencing dizziness for more than a month. The dizziness occurs suddenly and is not related to specific movements. He also complains of pain in his left ear, which his primary care physician attributes to scar tissue. There is a family history of brain tumors, with his mother and brother having had tumors. Mr. Tesfaye describes a tremor or tick-like movement in his head. He has been experiencing headaches for years, localized in the forehead and upper part of the head. He characterizes the headache pain as pressure-like, rating it 10 out of 10 in severity. The patient denies light or sound sensitivity, nausea, or vomiting associated with the headaches. The patient is currently taking topiramate 50 mg twice a day, prescribed by Dr. Jimenez Wells, [place] neurologist. He initially took it once a day but increased the dose due to pain. He has been diagnosed with peripheral vertigo, likely related to his left ear problem, and chronic daily tension headache, possibly related to muscle tension from anxiety, poor sleep, or stress. Medical History - Hypertension - Dyslipidemia - High cholesterol - Type 2 diabetes - Coronary artery disease - Benign prostatic hyperplasia (BPH) - Chronic daily tension headache - Peripheral vertigo Surgical History - CABG (Coronary Artery Bypass Graft) in 2021 - Sleep gastrectomy Medications and Supplements - Topiramate 50 mg by mouth twice a day - Prescribed by Dr. 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 HEENT: Positive for left ear pain, headaches described as pressure pain in forehead and upper part of head, rated 10/10. Negative for light sensitivity, sound sensitivity. Gastrointestinal: Negative for nausea, vomiting. Neurological: Positive for tremor or tick-like movement in head. PAST MEDICAL HISTORY: [ ] PAST SURGICAL HISTORY: [ ] PAST SOCIAL HISTORY: [ ] FAMILY HISTORY: [ ] Coded Allergies: ampicillin (Unverified Allergy, Severe, SWELLING, 07/01/18) Swelling and body rash hydrocodone (Unverified Allergy, Unknown, 01/06/24) morphine (Unverified Adverse Reaction, Intermediate, HALLUCINATIONS, 07/01/18) PHYSICAL EXAM EYES: Anicteric. Pupils equal and reactive. HENT: No oral thrush seen, moist Oral mucosa NECK: Supple, no JVD or thyromegaly. LUNGS: Good air entry. No rales, no rhonchi. CARDIOVASCULAR: S1, S2 regular. No murmur heard. ABDOMEN: Soft, non tender, bowel sounds present, no organomegaly CENTRAL NERVOUS SYSTEM: Awake, alert, oriented x 3. No focal deficits. SKIN: No rashes, no swelling. LYMPHATICS: No peripheral lymphadenopathy MUSCULOSKELETAL: No joint swelling, erythema or tenderness. EXTREMITIES: No cyanosis or clubbing BACK: No deformity, no pressure ulcer. GENITOURINARY: No dysuria or hematuria Vital Sign (Last 24 Hours) 04/15/25 04:00 Temp 98.6 B/P (MAP) 93/57 Pulse Ox 98 Intake & Output (last 24hrs) 04/14/25 04/14/25 04/15/25 15:00 23:00 07:00 Output Total 700 ml Balance -700 ml LABS: Laboratory: Test 04/15/25 04:10 04/14/25 20:19 04/14/25 11:18 04/14/25 11:12 Range/Units White Blood Count 6.7 4.8-10.8 K/uL Red Blood Count 4.49 L 4.50-6.20 MIL/uL Hemoglobin 11.2 L 14.0-18.0 g/dL Hematocrit 35.4 L 42-54 % Mean Corpuscular Volume 78.8 L 79-99 fL Mean Corpuscular Hemoglobin 24.9 L 27.0-33.0 pg Mean Corpuscular Hemoglobin Concent 31.6 L 32.0-36.0 g/dL Red Cell Distribution Width 18.5 H 11.0-15.5 % Platelet Count 175 130-400 K/uL Mean Platelet Volume 9.3 7.5-10.5 fL Immature Granulocyte % (Auto) 0.3 0-1 % Neutrophils (%) (Auto) 72.4 40.0-77.0 % Lymphocytes (%) (Auto) 20.2 L 21.0-51.0 % Monocytes (%) (Auto) 5.7 3.0-13.0 % Eosinophils (%) (Auto) 1.1 0.0-8.0 % Basophils (%) (Auto) 0.3 0.0-5.0 % Neutrophils # (Auto) 4.8 1.8-7.7 K/uL Lymphocytes # (Auto) 1.3 1.0-4.8 K/uL Monocytes # (Auto) 0.4 0.1-1.0 K/uL Eosinophils # (Auto) 0.07 0.00-0.70 K/uL Basophils # (Auto) 0.02 0.00-0.20 K/uL Absolute Immature Granulocyte (auto 0.02 0-1 K/uL Nucleated Red Blood Cells 0.0 0.0-0.19 % Sodium Level 137 136-145 mmol/L Potassium Level 3.4 L 3.5-5.1 mmol/L Chloride Level 106 101-111 mmol/L Carbon Dioxide Level 22 21-32 mmol/L Blood Urea Nitrogen 20 H 7-18 mg/dL Creatinine 0.9 0.5-1.3 mg/dL Glomerular Filtration Rate Calc 92 >90 mL/min Random Glucose 103 70-105 mg/dL Total Calcium 7.8 L 8.5-10.1 mg/dL Magnesium Level 1.80 1.80-2.40 mg/dL Whole Blood Glucose 152 #H 70-110 MG/DL Troponin I High Sensitivity 7 4-75 ng/L Urine Color LIGHT-YELLOW YELLOW Urine Appearance CLEAR CLEAR Urine pH 5.5 5.0-8.0 Urine Specific [place] 1.024 1.001-1.031 Urine Protein NEGATIVE NEGATIVE mg/dL Urine Glucose (UA) NEGATIVE NEGATIVE mg/dL Urine Ketones 10 H NEGATIVE mg/dL Urine Occult Blood NEGATIVE NEGATIVE Urine Nitrate NEGATIVE NEGATIVE Urine Bilirubin NEGATIVE NEGATIVE mg/dL Urine Urobilinogen 0.2 0.2-1.0 mg/dL Urine Leukocyte Esterase NEGATIVE NEGATIVE [place]ad/uL Urine RBC 0-1 0-1 /HPF Urine WBC 0-1 0-1 /HPF Urine Squamous Epithelial Cells RARE 0-2 /HPF Urine Bacteria RARE None Seen /HPF Urine Opiates Screen NEGATIVE NEGATIVE Urine Barbiturates Screen NEGATIVE NEGATIVE Urine Phencyclidine Screen NEGATIVE NEGATIVE Urine Amphetamines Screen NEGATIVE NEGATIVE Urine Benzodiazepines Screen NEGATIVE NEGATIVE Urine Cocaine Screen NEGATIVE NEGATIVE Urine Marijuana (THC) Screen NEGATIVE NEGATIVE Test 04/14/25 09:48 Range/Units Red Blood Cell Morphology See comments Erythrocyte Sedimentation Rate 17 0-20 MM/HR Prothrombin Time 10.6 9.6-11.6 SEC Prothromb Time International Ratio 1.00 0.85-1.15 Activated Partial Thromboplast Time 27.1 26.3-35.5 SEC Hemoglobin A1c 6.6 H 4.0-6.0 % Estimated Average Glucose (eAG) 143 H 70-126 mg/dL Iron Level 26 L 65-175 mcg/dL Total Iron Binding Capacity 340 250-450 mcg/dL Percent Iron Saturation 7.6 L 30-44 % Ferritin 17 L 30-400 ng/mL Total Bilirubin 0.3 0.2-1.0 mg/dL Direct Bilirubin 0.1 0.0-0.3 mg/dL Aspartate Amino Transf (AST/SGOT) 12 10-37 U/L Alanine Aminotransferase (ALT/SGPT) 18 12-78 U/L Alkaline Phosphatase 85 50-136 U/L Lactate Dehydrogenase 136 81-234 U/L C-Reactive Protein, Quantitative < 0.50 L 0.5-3.0 mg/L Total Protein 6.0 6.0-8.3 g/dL Albumin 3.3 L 3.5-5.0 g/dL Triglycerides Level 113 30-200 mg/dL Cholesterol Level 109 <200 mg/dL LDL Cholesterol 51 0-99 mg/dL HDL Cholesterol 40 29-71 mg/dL Vitamin B12 Level 743 193-986 pg/mL Folic Acid (LAB) 8.20 2-20 ng/mL Procalcitonin < 0.05 L 0.05-0.5 ng/mL Thyroid Stimulating Hormone (TSH) 0.71 # 0.36-3.74 uIU/mL DIAGNOSTICS / RADIOLOGY: MRI brain: neg for strokes MRI cervical spine: mild cervical spondylosis ASSESSMENT / PLAN: Mr. Tesfaye is a 69-year-old right-handed male with a history of hypertension, d yslipidemia, type 2 diabetes, coronary disease, and BPH presenting with dizziness for over a month and chronic headaches. Peripheral vertigo Assessment: Patient reports sudden onset dizziness for more than a month, not related to specific movements. Given the associated left ear pain and family history of ear tumors, peripheral vertigo is suspected, likely related to a left ear problem. An MRI of the brain and neck scan did not reveal any issues related to vertigo. Plan: - Refer to ENT specialist for evaluation of left ear problem - Initiate vestibular therapy - Prescribe meclizine 25 mg PO q8h PRN for dizziness - Follow up with Dr. Miranda (neurosurgeon) as an outpatient Chronic Daily Tension Headache Assessment: Patient reports long-standing headaches located in the forehead and upper part of the head, described as pressure pain and rated 10/10 in severity. No associated light or sound sensitivity, nausea, or vomiting. MRI of the brain was clean, showing no strokes or tumors. The headache is assessed as likely chronic daily tension headache, possibly related to muscle tension from anxiety, poor sleep, or stress. Plan: - Continue topiramate 50mg po bid follow up with Dr Wells - Address potential contributing factors such as anxiety, sleep issues, and stress management - Follow up to assess response to current treatment Cervical Spine spondylosis Assessment: MRI revealed mild cervical spine disherniation. The clinical significance and relation to the patient's symptoms are unclear at this time. Plan: - Follow up with Dr. Miranda (neurosurgeon) as an outpatient for evaluation Thank you for your consultation. I will sign off. ALIZE KLINE MD Apr 15, 2025 07:15
[2025-04-15] MEDS: Linaclotide (Linzess) 1 CAP PO SCH (09:00)
--- NOTE | 2025-04-15 10:47 | HMCIMG ---
EXAMINATION: DUPLEX ULTRASOUND EXAMINATION OF THE BILATERAL CAROTID AND VERTEBRAL ARTERIES. CLINICAL HISTORY: Dizziness. To rule out significant carotid artery stenosis. COMPARISON: Carotid Doppler dated 11/14/2023. TECHNIQUE: Real-time ultrasound scan of the bilateral carotid and vertebral arteries, 2-D grayscale, with color Doppler flow and spectral waveform analysis. FINDINGS: Color and spectral Doppler interrogation of the carotid vessels on the right demonstrate peak systolic velocities as follows: CCA (Proximal, mid, and distal): 67, 58, and 40 cm/s respectively. Bulb: 67 cm/s. ECA: 71 cm/s. ICA (Proximal, mid, and distal): 88, 75, and 74 cm/s respectively. Vertebral artery demonstrates antegrade flow: 43 cm/s. Right ICA/CCA ratio: 1.3 Peak systolic velocities on the left are as follows: CCA (Proximal, mid, and distal): 62, 66, and 69 cm/s respectively. Bulb: 40 cm/s. ECA: 61 cm/s. ICA (Proximal, mid, and distal): 64, 80, and 67 cm/s respectively. Vertebral artery demonstrates antegrade flow: 29 cm/s. Left ICA/CCA ratio: 1.2 Both the common carotid arteries and their branches reveal mild intimal thickening. There is a calcified plaque in the right bulb causing about 10% to 20% diameter stenosis. There are calcified plaques in the left bulb and distal common carotid artery causing about 10% to 20% diameter stenosis. IMPRESSION: Mild intimal thickening in the bilateral carotid arteries and their branches. Plaques as described. There is no significant flow limiting lesions in the remainder of the arteries. No sigificant interval change. /[place]
--- NOTE | 2025-04-15 11:11 | EKG ---
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
--- NOTE | 2025-04-15 13:00 | NUR ---
SPEECH NOTE: CERTIFIED SURGICAL TECHNOLOGIST coordinated with nurse Jazzy. Pt tolerating diet recommendations of easy to chew solids, thin liquids with no overt s/s of aspiration and with good oral intake. Please re-consult speech therapy services if any s/s of aspiration arise. All questions answered. Addendum: 04/15/[address]AYA CASTRO Amended: Links added.
--- NOTE | 2025-04-15 13:05 | HMCIMG ---
EXAM: CT Neck without and with IV Contrast CLINICAL HISTORY: Dysphagia: difficulty in swallowing, feels a lump in the back of the neck. TECHNIQUE: Contiguous axial images were obtained through the neck. Reconstructed imaging. Reformatted/MPR images were performed. A CT scan is done according to ALARA (As Low as Reasonably Achievable) with contrast. COMPARISON: None. FINDINGS: Included intracranial substances, orbits, and paranasal sinuses are grossly unremarkable. The nasopharynx, oropharynx, oral cavity, hypopharynx, and larynx are grossly unremarkable. Unremarkable epiglottis, vallecula, aryepiglottic folds, pyriform sinuses, and true vocal cords. The hyoid bone, thyroid, cricoid, and arytenoid cartilages are unremarkable. Mild heterogeneous coarse attenuation of the thyroid gland demonstrates a 6 mm hypodense lesion in the posterior aspect of the left lobe, which is probably a colloid nodule. Parotid and submandibular glands are grossly unremarkable. No pathologically enlarged lymph nodes. Atherosclerotic calcification of the bilateral carotid bulbs, right more than left, approximately 50% narrowing of the right carotid bulb, and 40-50% narrowing of the origin of the right internal carotid artery. Visualized, the lung apices are grossly clear. No acute osseous abnormality.Moderate degenerative changes in the cervical spine at C5-C6 and C6-C7 with a prominent anterior osteophyte impinging on the posterior pharyngeal wall. Poststernotomy status. Atherosclerotic calcification of the aortic arch. IMPRESSION: No abnormal soft tissue mass in the suprahyoid and infrahyoid neck spaces or enlarged lymph nodes. Moderate degenerative changes in the cervical spine at C5-C6 and C6-C7 with a prominent anterior osteophyte impinging on the posterior pharyngeal wall. Mild heterogeneous coarse attenuation of the thyroid gland and a small 6 mm hypodense lesion in the left lobe of the thyroid gland is probably a colloid nodule. Atherosclerotic calcification of the bilateral carotid bulbs, right more than left, approximately 50% narrowing of the right carotid bulb, and 40-50% narrowing of the origin of the right internal carotid artery. /[place]
[2025-04-15] MEDS ORDERED: DULO30CA52 PO (13:25)
[2025-04-15 17:47] LABS: CREATININE 1.0 mg/dL (0.5-1.3); GLOMERULAR FILTR. RATE CALC 81.0 mL/min (>90); GLUCOSE,RANDOM 146.0 mg/dL (70-105); SODIUM SERUM 136.0 mmol/L (136-145); UREA NITROGEN, BLOOD 15.0 mg/dL (7-18)
[2025-04-15 17:52] LABS: ASPARTATE AMINOTRANSFERASE 9.0 U/L (10-37); TOTAL PROTEIN, SERUM 6.1 g/dL (6.0-8.3)
--- NOTE | 2025-04-15 19:00 | HMCSR ---
APPROVED REPORT EXAM: Two-dimensional and M-mode echocardiogram with Doppler and color Doppler. INDICATION ICD: Dizziness, rule out any valvulopathy, heart failure 2D Dimensions RVDd4.3 cmLVEF(%)65.5 (>50%)LVED Vol(simp.)68.0 mL IVSd1.1 (0.7-1.1cm)FS(%)35 %LVES Vol(simp.)24.0 mL LVDd3.9 (3.8-5.6cm)LA (2D)4.3 (1.6-4.0cm)LVEF(%, simp.)65 % PWd0.9 (0.7-1.1cm)Ao Root(2D)3.0 (2.0-3.7cm)LA ESV INDEX (BP)28.20 mL/m2 IVSs1.3 cmLVOT diam2.2 (1.8-2.4cm) LVDs2.5 (2.5-4.0cm) PWs1.7 cm Deformation Strain Apical 4-16.5 % Apical 2-20.6 % Apical 3-15.3 % Global Strain-17.5 % M-Mode Dimensions EPSS0.5 cm LA (MM)4.2 (1.6-4.0cm) Ao Root(MM)3.2 (2.0-3.7cm) Aortic Valve AoV Vmax3.0 m/Ashley Peak GR36.2 mmHgLVOT Vmax1.1 m/s AoV VTI0.6 mAo Mean GR21.6 mmHgLVOT VTI0.24 m MARIKA (VMAX)1.41 cm2AVA (VTI) 1.6 cm2 Mitral Valve MV E Vmax72.1 cm/sDECEL Tbbi609 ms MV A Vmax61.8 cm/sP 1/2 T40 ms E/A ratio1.2MVA (PHT)5.4 cm2 TDI E/E' Xtnnsm49.0E/E' Jnswzmi16.2 Medial E' Peak V5.56 cm/sLateral E' Peak V6.42 cm/s Pulmonary Valve PV Vmax0.8 m/sPV VTI0.19 mPV Mean GR1.8 mmHg PV Peak GR2.7 mmHg Tricuspid Valve TR Vmax2.3 m/sRAP (EST) 8 wtTwSPCW92.5 mmHg TR Peak GR23.5 mmHg Left Ventricle The left ventricle is normal in size. GLS -18.05 There is normal LV segmental wall motion. There is n ormal left ventricular wall thickness. LVEF is 65-70%. The left ventricular diastolic function is nor mal. Right Ventricle The right ventricle is mildly dilated. Right ventricular systolic function is mildly reduced. Atria The left atrium size is mildly dilated. The right atrium size is normal. Aortic Valve Aortic valve appears bicuspid with commissures at the 2:00 and 8:00 positions. The aortic valve is th ickened with restricted opening. Trivial aortic regurgitation is present. Mild aortic valve stenosis with peak AV gradient of 36 mmHg, mean AV gradient of 22 mm Hg. AV area is 1.6 cm by continuity. AV V max is 3 m/s. AV Dimensionless index is 0.4. Mitral Valve The mitral valve appears to open well. Mild posterior annular calcification noted. There is trivial m itral valve regurgitation noted. There is no mitral valve stenosis. Tricuspid Valve The tricuspid valve is normal in structure. There is trace of tricuspid valve regurgitation noted. Pulmonic Valve The pulmonary valve is normal in structure. There is no pulmonic valvular regurgitation. Great Vessels The aortic root is normal in size. IVC is not well visualized. Pericardium There is no pericardial effusion. Other Information Quality : Technically difficult study due to body habitus Conclusion The left atrium size is mildly dilated. The left ventricle is normal in size. GLS -18.05 There is normal LV segmental wall motion. LVEF is 65-70%. The left ventricular diastolic function is normal. Aortic valve appears bicuspid with commissures at the 2:00 and 8:00 positions. The aortic valve is thickened with mildly restricted opening. Mild aortic valve stenosis with peak AV gradient of 36 mmHg, mean AV gradient of 22 mm Hg. AV area is 1.6 cm by continuity. AV V max is 3 m/s. AV Dimensionless index is 0.4. Trivial aortic regurgitation is present. There is no pericardial effusion.
[2025-04-15] MEDS ORDERED: LINA290C PO (23:57)
[2025-04-16] VITALS (10 sets, daily range): BP systolic 94–158; BP diastolic 57–78; PULSE 65–83; RESP 16–18; TEMP 97.6–97.9; O2SAT 99
[2025-04-16 05:15] LABS: IMMATURE GRANULOCYTE ABSOLUTE 0.03 K/uL (0-1); NUCLEATED RED BLOOD CELLS 0.0 % (0.0-0.19); PLATELET COUNT (AUTO) 161 K/uL (130-400); RED BLOOD CELL COUNT(AUTO) 4.54 MIL/uL (4.50-6.20); RED CELL DISTRIBUTION WIDTH 18.8 % (11.0-15.5); WHITE BLOOD COUNT (AUTO) 7.3 K/uL (4.8-10.8)
[2025-04-16 05:31] LABS: CREATININE 1.0 mg/dL (0.5-1.3); GLOMERULAR FILTR. RATE CALC 81.0 mL/min (>90); GLUCOSE,RANDOM 101.0 mg/dL (70-105); PHOSPHORUS 3.6 mg/dL (2.5-4.9); SODIUM SERUM 137.0 mmol/L (136-145); UREA NITROGEN, BLOOD 14.0 mg/dL (7-18)
[2025-04-16] MEDS: MAGNESIUM 2GM PREMIX 50ML 50 ML IV SCH (05:42)
[2025-04-16] MEDS ORDERED: COMPOUND IV MISC 1 EACH IVSOLN MISC PRN (10:30)
--- NOTE | 2025-04-16 13:45 | NUR ---
PATIENT SEEN AND EVALUATED. REPORTS HE HAS CERVICAL SPINE SPUR. 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 PT REPORTS HE GETS DIZZY WHEN ROTATING HEAD HOWEVER HAS ADAPTED TO THIS BY CAUTIOUSLY TURNING HIS HEAD. HE DENIES ANY FALLS AND DEMONSTRATED SAFE AMBULATION IN HOME. PT NEWLY DIAGNOSED WITH HEART VALVE INSUFFICIENCY WELL THYROID NODULE WHICH HE WILL FOLLOW UP AN OP. NO SKILLED PT NEED AT THIS TIME. Addendum: 04/16/25 at 1439 by NIGEL GÓMEZ PT Amended: Links added.
--- NOTE | 2025-04-16 17:21 | DS ---
Discharge Summary Hospital Course Summary: This is a 69-year-old male with underlying history of hypertension, hyperlipidemia, type 2 diabetes mellitus, coronary artery disease with prior history of coronary artery bypass grafting in 2021, BPH, history of we will sleeve gastrectomy, in 2023 who presented to the ER for further evaluation of headache, nonresolving dizziness for about a month, paresthesias involving the left upper extremity and gait instability. Symptoms have been ongoing for about a month, patient states that when ambulating, he experiences vertiginous/disequilibrium syndrome. He feels dizzy when lying down in changing positions. States that dizziness has worsened over the last several days, he has also noticed that he gets uncontrolled tremors involving the head that worsened the dizziness. He has also noticed some paresthesias and numbness involving the left upper extremity and he states that he has episodes where he gets severe numbness of the left upper extremity. Denies any falls, denies any previous history of strokes. He has followed up with Neurology as outpatient but he is unsure about the cause of the dizziness. He has also noticed some left ear pain as well. Reports having pressure-like headache in addition to the dizziness intermittently. Symptoms have not been resolving. He is followed up with primary care physician who has prescribed symptomatic therapy. Patient denies any syncope and reports that he fell about two months ago. He has been ambulating less due to issues with dizziness and he also feels like he may fall to one side. In the ED, patient was noted to be afebrile with T-max of 97.7 F, EKG showed normal sinus rhythm, blood pressure of 125/74. Labs on presentation showed WBC count of 6200, hemoglobin 13.3, platelet count of 304688. BMP showed sodium of 135, potassium 3.7, BUN of 17 , creatinine 1.2, blood glucose of 112, cardiac troponin of 7. Underwent further workup in the ER for evaluation of dizziness and paresthesias with CT of the head which showed no acute intracranial abnormality, MRI brain without contrast showed no acute infarct, MRI of the cervical spine showed degenerative disc disease more pronounced at C6-C7. ER provider spoke with Dr. Miranda, with neurosurgery regards to abnormal blood cervical spine findings on the MRI who recommended outpatient follow up. Due to nonresolving symptoms even after receiving meclizine, and patient continues to have significant dizziness, headache, and paresthesias, request made for patient to be admitted. Patient will be admitted and we will have Neurology follow this patient Patient also states that he feels like a lump in the back of the neck which has been ongoing for the past several weeks. Denies any injury to the neck. He also has been followed by speech for further evaluation of dysphagia as outpatient. Dysphagia has been going on for a month as well. Patient will be started on IV hydration, we will have speech follow up, we will see how patient progresses in the next 24-48 hours. Physical therapy evaluation will be requested. On the floor, neurology, neurosurgery and physical therapy was consulted. Labs remarkable for TSH 0.71, folic acid 8.2, vitamin B12 743, HbA1c 6.6. Neurology recommended outpatient follow up to ENT as dizziness look like peripheral in origin and was associated with the ER symptoms which included tinnitus and ear fullness. MRI cervical spine revealed degenerative changes along with disc bulge in C5-C6 and C6-C7 cervical spine, for which Neurosurgery recommended outpatient workup in [address] neck soft tissue revealed 6 mm nodule likely colloid nodule. Echocardiogram revealed LVEF 65-70% with mild aortic stenosis and bicuspid aortic valve. Carotid Doppler revealed 10-20% stenosis of the bilateral carotid artery. Orthostatic vital was negative for postural hypotension. Patient was on [id number] mg t.i.d. which helped his symptoms in the hospital. He is stable enough to be discharged today. We will follow up with Neurosurgery in 2 weeks( Dr.Jose Miranda). Follow up to ENT in 2 weeks. He will follow up to his PCP in 3 days. He will follow up to Neurology in 2 weeks for the headache. He will continue his home medications along with meclizine 25 mg 3 times a day as needed. Supervisor Extrusion(s): Neurology consult for dizziness and left hand paresthesia Neurosurgery consult for disc bulge in C5-C6 and C6-C7 Physical therapy Speech evaluation Procedure(s): PATIENT: HAILY YE MR#: [id number] : 1955 SEX: M AGE: 69 LOCATION: [facility] ORDER 2 STATUS: REG ER REPORT#: [id number] SERVICE 1 REASON: Dizziness with numbness in hands and feet. More pronounced in left arm ORDERING PHYSICIAN: DARYL OSHEA MD PROCEDURE: HEAD WO - CT HEAD/BRAIN W/O CONTRAST EXAM: CT Head Without IV contrast. CLINICAL HISTORY: Dizziness with numbness in hands and feet. More pronounced in left arm TECHNIQUE: Axial computed tomography images of the head/brain without intravenous contrast. COMPARISON: None provided. FINDINGS: BRAIN: No evidence of acute hemorrhage. No mass lesion. No CT evidence for acute territorial infarct. No midline shift or extra-axial collections. VENTRICLES: No hydrocephalus. ORBITS: The orbits are unremarkable. SINUSES AND MASTOIDS: The paranasal sinuses and mastoid air cells are clear. BONES: No fracture. SOFT TISSUES: Unremarkable. IMPRESSION: No acute intracranial abnormality. /[place] DICTATED BY: VIKRAM ALEJANDRA Jr., MD DATE: 04/14/251148 ELECTRONICALLY SIGNED BY: VIKRAM ALEJANDRA Jr., MD DATE: 04/14/251148 PATIENT: HAILY YE MR#: [id number] : 1955 SEX: M AGE: 69 LOCATION: [facility] ORDER 4 STATUS: [facility] REPORT#: [id number] SERVICE 2 REASON: Dizziness with numbness in hands and feet. More pronounced in left arm ORDERING PHYSICIAN: DARYL OSHEA MD PROCEDURE: BRAIN WO - MR BRAIN WO CON EXAM: MR Brain Without IV contrast. CLINICAL HISTORY: Dizziness with numbness in hands and feet. More pronounced in left arm TECHNIQUE: Multisequence, multiplanar magnetic resonance images acquired of the brain. CONTRAST: None. COMPARISON: Correlation with CT examination of the head from today. FINDINGS: BRAIN: No restricted diffusion to indicate acute infarction. No intracranial mass or hemorrhage. No midline shift or extra-axial fluid collection. No sulcal effacement. No cerebellar tonsillar ectopia. The central arterial and venous flow voids are patent. VENTRICLES: No hydrocephalus. ORBITS: The orbits are normal. SINUSES AND MASTOIDS: The sinuses and mastoid air cells are clear. BONES: No focal osseous lesion. IMPRESSION: Unremarkable brain MRI. /[place] DICTATED BY: VIKRAM ALEJANDRA Jr., MD DATE: 04/14/251147 ELECTRONICALLY SIGNED BY: VIKRAM ALEJANDRA Jr., MD DATE: 04/14/251147 PATIENT: HAILY YE MR#: [id number] : 1955 SEX: M AGE: 69 LOCATION: [facility] ORDER 4 STATUS: [facility] REPORT#: [id number] SERVICE REASON: Dizziness with numbness in hands and feet. More pronounced in left arm ORDERING PHYSICIAN: DARYL OSHEA MD PROCEDURE: C SPN WO - MR SPINAL CANAL, CERV WO CON EXAM: MR Cervical Spine Without Intravenous Contrast. CLINICAL HISTORY: Dizziness with numbness in the hands and feet. More pronounced in the left arm. TECHNIQUE: Magnetic resonance images of the cervical spine in multiple planes. CONTRAST: None. COMPARISON: Prior MRI cervical spine dated 08/11/24. FINDINGS: The imaged posterior fossa is unremarkable. The craniocervical junction is intact. No acute fracture. Normal lordotic curvature. Multilevel disc desiccation in the cervical spine with a mild to moderate reduction in the disc height at the C5-6 and C6-7 levels. Normal vertebral body and rest of the disc heights. Normal marrow signal of the vertebrae. The cervical cord is in an anatomic location. No abnormal signal involves the cord. No extra-axial masses. The surrounding soft tissues are unremarkable. Level by level, disease is present as follows: C1-C2: No osteoarthritis. C2-C3: No disc bulge or herniation. No neural foraminal, lateral recess, or spinal canal stenosis. C3-C4: No disc bulge or herniation. No neural foraminal, lateral recess, or spinal canal stenosis. C4-C5: No disc bulge or herniation. No neural foraminal, lateral recess, or spinal canal stenosis. C5-C6: 2 mm circumferential disc bulge. Partial effacement of the ventral CSF space. Mild bilateral lateral recess and foraminal narrowing. C6-C7: 3 mm circumferential disc bulge. Partial effacement of the ventral CSF space. Mild to moderate bilateral lateral recess and neural foraminal narrowing. C7-T1: No disc bulge or herniation. No neural foraminal, lateral recess, or spinal canal stenosis. IMPRESSION: Degenerative disc disease in the cervical spine is more pronounced at the C6-7 level. No significant interval change. /[place] DICTATED BY: VIKRAM ALEJANDRA Jr., MD DATE: 04/14/251328 ELECTRONICALLY SIGNED BY: VIKRAM ALEJANDRA Jr., MD DATE: 04/14/251328 PATIENT: HAILY YE MR#: [id number] : 1955 SEX: M AGE: 69 LOCATION: [facility] ORDER 28 STATUS: ADM IN REPORT#: [id number] SERVICE 25 REASON: r/o any significant infiltrates ORDERING PHYSICIAN: NABEEL KENT MD PROCEDURE: CXR1VW - CHEST 1VW EXAM: CR Chest, 1 View. CLINICAL HISTORY: r/o any significant infiltrates COMPARISON: X-ray chest 11/13/2023 FINDINGS: LUNGS: There is no mass, infiltrate, or acute pulmonary abnormality. PLEURAL SPACES: No evidence of pleural effusion or pneumothorax. MEDIASTINUM: The cardiomediastinal silhouette is within normal limits. Changes of median sternotomy BONES: No acute osseous abnormality. IMPRESSION: No acute cardiopulmonary pathology is evident. No significant change /[place] DICTATED BY: COREY SIDDIQUI MD DATE: 04/14/251624 ELECTRONICALLY SIGNED BY: COREY SIDDIQUI MD DATE: 04/14/251624 PATIENT: HAILY YE MR#: [id number] : 1955 SEX: M AGE: 69 LOCATION: [facility] ORDER 1433 STATUS: ADM IN REPORT#: [id number] SERVICE 1429 REASON: dysphagia with swallowing, pt feels a lump in back of neck, left ear pain ORDERING PHYSICIAN: NABEEL KENT MD PROCEDURE: NKSOFTIWWO - CT NECK SOFT TISSUE W/WO CONTR EXAM: CT Neck without and with IV Contrast CLINICAL HISTORY: Dysphagia: difficulty in swallowing, feels a lump in the back of the neck. TECHNIQUE: Contiguous axial images were obtained through the neck. Reconstructed imaging. Reformatted/MPR images were performed. A CT scan is done according to ALARA (As Low as Reasonably Achievable) with contrast. COMPARISON: None. FINDINGS: Included intracranial substances, orbits, and paranasal sinuses are grossly unremarkable. The nasopharynx, oropharynx, oral cavity, hypopharynx, and larynx are grossly unremarkable. Unremarkable epiglottis, vallecula, aryepiglottic folds, pyriform sinuses, and true vocal cords. The hyoid bone, thyroid, cricoid, and arytenoid cartilages are unremarkable. Mild heterogeneous coarse attenuation of the thyroid gland demonstrates a 6 mm hypodense lesion in the posterior aspect of the left lobe, which is probably a colloid nodule. Parotid and submandibular glands are grossly unremarkable. No pathologically enlarged lymph nodes. Atherosclerotic calcification of the bilateral carotid bulbs, right more than left, approximately 50% narrowing of the right carotid bulb, and 40-50% narrowing of the origin of the right internal carotid artery. Visualized, the lung apices are grossly clear. No acute osseous abnormality.Moderate degenerative changes in the cervical spine at C5-C6 and C6-C7 with a prominent anterior osteophyte impinging on the posterior pharyngeal wall. Poststernotomy status. Atherosclerotic calcification of the aortic arch. IMPRESSION: No abnormal soft tissue mass in the suprahyoid and infrahyoid neck spaces or enlarged lymph nodes. Moderate degenerative changes in the cervical spine at C5-C6 and C6-C7 with a prominent anterior osteophyte impinging on the posterior pharyngeal wall. Mild heterogeneous coarse attenuation of the thyroid gland and a small 6 mm hypodense lesion in the left lobe of the thyroid gland is probably a colloid nodule. Atherosclerotic calcification of the bilateral carotid bulbs, right more than left, approximately 50% narrowing of the right carotid bulb, and 40-50% narrowing of the origin of the right internal carotid artery. /[place] DICTATED BY: TOBIAS ROSS MD DATE: 04/16/25658 ELECTRONICALLY SIGNED BY: TOBIAS ROSS MD DATE: 04/16/25658 PATIENT: HAILY YE MR#: [id number] : 1955 SEX: M AGE: 69 LOCATION: [facility] ORDER 1451 STATUS: ADM IN [facility] REPORT#: [id number] SERVICE 1450 REASON: dizziness, r/o significant carotid artery stenosis ORDERING PHYSICIAN: NABEEL KENT MD PROCEDURE: CAROTID - US CAROTID DUPLEX EXAMINATION: DUPLEX ULTRASOUND EXAMINATION OF THE BILATERAL CAROTID AND VERTEBRAL ARTERIES. CLINICAL HISTORY: Dizziness. To rule out significant carotid artery stenosis. COMPARISON: Carotid Doppler dated 11/14/2023. TECHNIQUE: Real-time ultrasound scan of the bilateral carotid and vertebral arteries, 2-D grayscale, with color Doppler flow and spectral waveform analysis. FINDINGS: Color and spectral Doppler interrogation of the carotid vessels on the right demonstrate peak systolic velocities as follows: CCA (Proximal, mid, and distal): 67, 58, and 40 cm/s respectively. Bulb: 67 cm/s. ECA: 71 cm/s. ICA (Proximal, mid, and distal): 88, 75, and 74 cm/s respectively. Vertebral artery demonstrates antegrade flow: 43 cm/s. Right ICA/CCA ratio: 1.3 Peak systolic velocities on the left are as follows: CCA (Proximal, mid, and distal): 62, 66, and 69 cm/s respectively. Bulb: 40 cm/s. ECA: 61 cm/s. ICA (Proximal, mid, and distal): 64, 80, and 67 cm/s respectively. Vertebral artery demonstrates antegrade flow: 29 cm/s. Left ICA/CCA ratio: 1.2 Both the common carotid arteries and their branches reveal mild intimal thickening. There is a calcified plaque in the right bulb causing about 10% to 20% diameter stenosis. There are calcified plaques in the left bulb and distal common carotid artery causing about 10% to 20% diameter stenosis. IMPRESSION: Mild intimal thickening in the bilateral carotid arteries and their branches. Plaques as described. There is no significant flow limiting lesions in the remainder of the arteries. No sigificant interval change. /[place] DICTATED BY: TOBIAS ROSS MD DATE: 04/15/251145 ELECTRONICALLY SIGNED BY: TOBIAS ROSS MD DATE: 04/15/25 114 PATIENT: HAILY YE MR#: [id number] : 1955 SEX: M AGE: 69 LOCATION: [facility] ORDER 1451 STATUS: ADM IN REPORT#: [id number] SERVICE 0701 REASON: dizziness, r/o any valvulopathy, heart failure ORDERING PHYSICIAN: NABEEL KENT MD PROCEDURE: ECHO CMP - ECHO 2-D COMPLETE APPROVED REPORT EXAM: Two-dimensional and M-mode echocardiogram with Doppler and color Doppler. INDICATION ICD: Dizziness, rule out any valvulopathy, heart failure 2D Dimensions RVDd 4.3 cm LVEF(%) 65.5 (>50%) LVED Vol(simp.) 68.0 mL IVSd 1.1 (0.7-1.1cm) FS(%) 35 % LVES Vol(simp.) 24.0 mL LVDd 3.9 (3.8-5.6cm) LA (2D) 4.3 (1.6-4.0cm) LVEF(%, simp.) 65 % PWd 0.9 (0.7-1.1cm) Ao Root(2D) 3.0 (2.0-3.7cm) LA ESV INDEX (BP) 28.20 mL/m2 IVSs 1.3 cm LVOT diam 2.2 (1.8-2.4cm) LVDs 2.5 (2.5-4.0cm) PWs 1.7 cm Deformation Strain Apical 4 -16.5 % Apical 2 -20.6 % Apical 3 -15.3 % Global Strain -17.5 % M-Mode Dimensions EPSS 0.5 cm LA (MM) 4.2 (1.6-4.0cm) Ao Root(MM) 3.2 (2.0-3.7cm) Aortic Valve AoV Vmax 3.0 m/s Ao Peak GR 36.2 mmHg LVOT Vmax 1.1 m/s AoV VTI 0.6 m Ao Mean GR 21.6 mmHg LVOT VTI 0.24 m MARIKA (VMAX) 1.41 cm2 MARIKA (VTI) 1.6 cm2 Mitral Valve MV E Vmax 72.1 cm/s DECEL Time 241 ms MV A Vmax 61.8 cm/s P 1/2 T 40 ms E/A ratio 1.2 MVA (PHT) 5.4 cm2 TDI E/E' Medial 13.0 E/E' Lateral 11.2 Medial E' Peak V 5.56 cm/s Lateral E' Peak V 6.42 cm/s Pulmonary Valve PV Vmax 0.8 m/s PV VTI 0.19 m PV Mean GR 1.8 mmHg PV Peak GR 2.7 mmHg Tricuspid Valve TR Vmax 2.3 m/s RAP (EST) 8 mmHg RVSP 31.5 mmHg TR Peak GR 23.5 mmHg Left Ventricle The left ventricle is normal in size. GLS -18.05 There is normal LV segmental w all motion. There is normal left ventricular wall thickness. LVEF is 65-70%. The left ventricular diastolic function is normal. Right Ventricle The right ventricle is mildly dilated. Right ventricular systolic function is mildly reduced. Atria The left atrium size is mildly dilated. The right atrium size is normal. Aortic Valve Aortic valve appears bicuspid with commissures at the 2:00 and 8:00 positions. The aortic valve is thickened with restricted opening. Trivial aortic regurgitation is present. Mild aortic valve stenosis with peak AV gradient of 36 mmHg, mean AV gradient of 22 mm Hg. AV area is 1.6 cm by continuity. AV V max is 3 m/s. AV Dimensionless index is 0.4. Mitral Valve The mitral valve appears to open well. Mild posterior annular calcification noted. There is trivial mitral valve regurgitation noted. There is no mitral valve stenosis. Tricuspid Valve The tricuspid valve is normal in structure. There is trace of tricuspid valve regurgitation noted. Pulmonic Valve The pulmonary valve is normal in structure. There is no pulmonic valvular regurgitation. Great Vessels The aortic root is normal in size. IVC is not well visualized. Pericardium There is no pericardial effusion. Other Information Quality : Technically difficult study due to body habitus Conclusion The left atrium size is mildly dilated. The left ventricle is normal in size. GLS -18.05 There is normal LV segmental wall motion. LVEF is 65-70%. The left ventricular diastolic function is normal. Aortic valve appears bicuspid with commissures at the 2:00 and 8:00 positions. The aortic valve is thickened with mildly restricted opening. Mild aortic valve stenosis with peak AV gradient of 36 mmHg, mean AV gradient of 22 mm Hg. AV area is 1.6 cm by continuity. AV V max is 3 m/s. AV Dimensionless index is 0.4. Trivial aortic regurgitation is present. There is no pericardial effusion. 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 and C6-C7, POA Peripheral dizziness, POA Bicuspid aortic valve with mild aortic stenosis, POA Left arm paresthesias, POA Nonresolving subacute headache, POA Hypovolemic hyponatremia, POA Dehydration, POA Tobacco use disorder, POA Moderate protein calorie malnutrition, POA Underlying history of recent oropharyngeal dysphagia, POA Left ear pain x1 month, POA Underlying history of hypertension, POA Hyperlipidemia, POA Type 2 diabetes mellitus, POA History of prior history of sleeve gastrectomy in 2023, POA GERD, POA BPH, POA Discharge Instructions: -Please continue your home medications as instructed. -You are prescribed iron tablets please continue as instructed. -MRI of the cervical spine revealed disc bulge in C5-C6 and C6-C7. You have to follow up to neurosurgery for further workup in 2 weeks. ( Dr Neftali Miranda) -Follow up to ENT for possible peripheral dizziness associated with the ear problem in 2 weeks -Follow up to Neurology in 2 weeks for the headache -Your echocardiogram revealed bicuspid aortic valve and CT neck revealed 6 mm likely colloid cyst. Follow up to PCP for the recent finding and necessary lina p in 3 days. Home Medications: Reported Medications Duloxetine HCl (Duloxetine HCl) 30 Mg Capsule.dr, 1 CAP PO DAILY 04/15/25 Linaclotide (Linzess) 290 Mcg Capsule, 1 CAP PO DAILY for 30 Days, #30 CAP 0 Refills 04/14/25 Tizanidine HCl (Tizanidine HCl) 2 Mg Tablet, 2 MG PO BID, TAB 04/14/25 Cyclobenzaprine HCl (Cyclobenzaprine HCl) 7.5 Mg Tablet, 7.5 MG PO HS, TAB 04/14/25 Rosuvastatin Calcium (Rosuvastatin Calcium) 20 Mg Tablet, 20 MG PO HS, TAB 04/14/25 Topiramate (Topiramate) 50 Mg Tablet, 1 TAB PO BID for 30 Days, #60 TAB 0 Refills 04/14/25 Isosorbide Mononitrate (Isosorbide Mononitrate ER) 30 Mg Tab.er.24h, 30 MG PO HS, TAB 04/14/25 Famotidine (Famotidine) 40 Mg Tablet, 40 MG PO HS, TAB 04/14/25 Meclizine HCl (Meclizine HCl) 25 Mg Tablet, 25 MG PO BID, TAB 04/14/25 Pantoprazole Sodium (Pantoprazole Sodium) 40 Mg Tablet.dr, 1 TAB PO DAILY for 30 Days, #30 TAB 0 Refills 04/14/25 Tamsulosin HCl (Flomax) 0.4 Mg Cap.er.24h, 0.4 MG PO HS, CAPSULE. 10/30/21 Discontinued Reported Medications Linaclotide (Linzess) 290 Mcg Capsule, 1 CAP PO DAILY PRN for CONSTIPATION for 30 Days, #30 CAP 0 Refills 04/15/25 Famotidine (Famotidine) 40 Mg Tablet, 40 MG PO BID, TAB 01/06/24 Mv-Min/Folic/K1/Lycopen/Lutein (Centrum Silver Men Tablet) 300 Mcg-60 Mcg-600 Mcg-300 Mcg Tablet, 1 EACH PO DAILY, TAB 01/06/24 Esomeprazole Magnesium (Esomeprazole Magnesium) 40 Mg Capsule.dr, 40 MG PO AM, CAP 01/06/24 Buspirone HCl (Buspirone HCl) 10 Mg Tablet, 10 MG PO BID, TAB 01/06/24 Docusate Sodium (Docusate Sodium) 100 Mg Capsule, 100 MG PO BID, CAP 01/06/24 Propranolol HCl (Propranolol HCl) 20 Mg Tablet, 20 MG PO AM, TAB 01/06/24 Ergocalciferol (Vitamin D2) (Vitamin D2) 1,250 Mcg (41462 Unit) Capsule, 1250 MCG PO weekly, CAP 11/14/23 Nitroglycerin (Nitroglycerin) 0.4 Mg Tab.subl, 0.4 MG SL chest pain, TAB.SL 11/14/23 Pregabalin (Pregabalin) 100 Mg Capsule, 100 MG PO BID, CAP 11/14/23 Folic Acid/Vitamin B Comp W-C (Sparks Caps Softgel) 1 Mg Capsule, 1 MG PO DAILY, CAP 12/13/21 Rosuvastatin Calcium (Crestor) 20 Mg Tablet, 20 MG PO DAILY, TAB 12/13/21 Finasteride (Finasteride) 5 Mg Tablet, 5 MG PO DAILY, TAB 10/30/21 Isosorbide Mononitrate (Isosorbide Mononitrate ER) 30 Mg Tab.er.24h, 30 MG PO DAILY, TAB 10/30/21 Continued Medications: Cyclobenzaprine HCl (Cyclobenzaprine HCl) 7.5 Mg Tablet 7.5 MG PO HS, TAB Duloxetine HCl (Duloxetine HCl) 30 Mg Capsule. 1 CAP PO DAILY Famotidine (Famotidine) 40 Mg Tablet 40 MG PO HS, TAB Isosorbide Mononitrate (Isosorbide Mononitrate ER) 30 Mg Tab.er.24h 30 MG PO HS, TAB Linaclotide (Linzess) 290 Mcg Capsule 1 CAP PO DAILY for 30 Days, #30 CAP 0 Refills Meclizine HCl (Meclizine HCl) 25 Mg Tablet 25 MG PO BID, TAB Pantoprazole Sodium (Pantoprazole Sodium) 40 Mg Tablet. 1 TAB PO DAILY for 30 Days, #30 TAB 0 Refills Rosuvastatin Calcium (Rosuvastatin Calcium) 20 Mg Tablet 20 MG PO HS, TAB Tamsulosin HCl (Flomax) 0.4 Mg Cap.er.24h 0.4 MG PO HS, CAPSULE. Tizanidine HCl (Tizanidine HCl) 2 Mg Tablet 2 MG PO BID, TAB Topiramate (Topiramate) 50 Mg Tablet 1 TAB PO BID for 30 Days, #60 TAB 0 Refills Time spent arranging discharge: 1-30 minutes ATTESTATION BY PHYSICIAN I have seen and examined the patient. I reviewed the documentation, medical decision making, and treatment plan as noted by the mid-level provider above. I agree with the findings and plan of care. DANIELLE YAN MD, SUNIL MD Apr 16, 2025 17:21
[2025-04-16] MEDS ORDERED: FERS325 PO (17:31)
[2025-04-17] MEDS ORDERED: FOLic ACID 5 MG/ML VIAL 1 MG, THIAMINE HCL 100 MG in 0.9%NACL 1000ML 1,000 ML IV SCH (03:00)
[2025-04-17] MEDS ORDERED: THIAMINE HCL 100 MG TABLET PO SCH (09:00)
== END 2025-04-16 16:28 | disposition home or self-care (01) | DRG 74 ==
LOC: EDH 08:38 → EDHIP 14:19 → 3BH 04-15 23:15
PROVIDERS: ADMIT Internal Medicine; ATTEND Internal Medicine
DX: G62.9 Polyneuropathy, unspecified (principal); E87.1 Hypo-osmolality and hyponatremia; E44.0 Moderate protein-calorie malnutrition; R42 Dizziness and giddiness; M47.892 Other spondylosis, cervical region; I25.10 Atherosclerotic heart disease of native coronary artery without angina pectoris; I10 Essential (primary) hypertension; E11.9 Type 2 diabetes mellitus without complications; E87.8 Other disorders of electrolyte and fluid balance, not elsewhere classified; E86.0 Dehydration; Z68.28 Body mass index [BMI] 28.0-28.9, adult; R13.12 Dysphagia, oropharyngeal phase; H92.02 Otalgia, left ear; K21.9 Gastro-esophageal reflux disease without esophagitis; N40.0 Benign prostatic hyperplasia without lower urinary tract symptoms; M50.323 Other cervical disc degeneration at C6-C7 level; M47.812 Spondylosis without myelopathy or radiculopathy, cervical region; H93.12 Tinnitus, left ear; E86.1 Hypovolemia; E78.00 Pure hypercholesterolemia, unspecified; F17.200 Nicotine dependence, unspecified, uncomplicated; Z79.899 Other long term (current) drug therapy; Z90.49 Acquired absence of other specified parts of digestive tract; Z82.49 Family history of ischemic heart disease and other diseases of the circulatory system; Z95.1 Presence of aortocoronary bypass graft; Z98.84 Bariatric surgery status
CPT/HCPCS: 36415; 70450; 70492; 70551; 71045; 72141; 80048; 80053; 80061; 80076; 80305; 81001; 82306; 82607; 82728; 82746; 82948; 83036; 83540; 83550; 83615; 83735; 84100; 84145; 84207; 84443; 84484; 85025; 85610; 85651; 85730; 86140; 92610; 93005; 93306; 93356; 93880; 94640; 94664; 96361; 96374; 96375; 99285; G0378; J1171; J1756; J1885; J2405; J3411; J3475; J3490; J7030; J7040; J7050; Q9967

== ENCOUNTER → 2025-05-27 | Outpatient (CLI) | payer OTHER ==
[~2025-05-27] MED LIST changes: -BUSP10TA3 PO; -DOCU100C33 PO; +DULO30CA52 PO; -ERGO500093 PO; -ESOM40CA66 PO; +FERS325 PO; -FINA5TAB41 PO; -FOLI1CAP23 PO; +LINA290C PO; +MECL-302 PO; -MULT-1289 PO; -NITR0.4T50 SL; +PANT40TA54 PO; -PREG100C56 PO; -PROP20TA7 PO; -ROSU20TA23 PO; +ROSU20TA98 PO; +TIZA-194 PO; +TOPI-97 PO
--- NOTE | 2025-05-27 22:04 | HMCIMG ---
EXAM: MR Thoracic Spine Without IV Contrast CLINICAL HISTORY: S22.080D ??? Wedge compression fracture of T11???T12 vertebra, subsequent encounter TECHNIQUE: Multiplanar, multisequence magnetic resonance images of the thoracic spine obtained without intravenous contrast. Series acquired: 2 - COR T2 LOC SSFSE - TR: 800.1 - TE: 74.3 - ET: 1.0 - Thk: 5.0 7 - SAG T2 FRFSE - TR: 4039.0 - TE: 121.4 - ET: 23.0 - Thk: 4.0 8 - SAG T1 FSE (FS) - TR: 546.0 - TE: 17.1 - ET: 5.0 - Thk: 4.0 9 - SAG STIR - TR: 5141.0 - TE: 37.8 - ET: 15.0 - Thk: 4.0 10 - AX T2 FRFSE - TR: 6457.0 - TE: 118.6 - ET: 20.0 - Thk: 4.0 400 - PASTED IMAGES - TE: 105.4 - ET: 21.0 - Thk: 5.0 CONTRAST: None. COMPARISON: None provided. FINDINGS: SPINAL CORD: Normal cord signal and contour. No intramedullary lesion or cord edema. VERTEBRAE: Anterior wedging of the T12 vertebral body with 30???40% height loss, chronic in nature. Superior endplate depressions of T4 and T5 with less than 20% height loss, likely chronic. No acute marrow edema or aggressive osseous lesion. ALIGNMENT: Normal thoracic alignment maintained. No spondylolisthesis. DEGENERATIVE CHANGES: Ligamentum flavum thickening and facet arthropathy at T9???T10 and T10???T11 levels resulting in grade I central canal stenosis. Mild facet joint effusion noted at T10???T11. No significant disc herniation or foraminal stenosis. PARASPINAL SOFT TISSUES: No paraspinal collection or soft tissue abnormality. IMPRESSION: * Chronic anterior wedging of T12 vertebral body with 30???40% height loss. * Chronic superior endplate depressions of T4 and T5 with less than 20% height loss. * Ligamentum flavum thickening and facet arthropathy at T9???T10 and T10???T11 resulting in grade I central canal stenosis. * Mild facet joint effusion at T10???T11. * Radiologic???Clinical Correlation: Findings consistent with chronic post-compressive and degenerative thoracic spondylosis; correlate clinically for mechanical back pain or radiculopathy. /[place]
== END | disposition home or self-care (01) ==
LOC: RAH 13:34
PROVIDERS: ATTEND Neurological Surgery
DX: S22.080D Wedge compression fracture of T11-T12 vertebra, subsequent encounter for fracture with routine healing (principal); M54.9 Dorsalgia, unspecified; M47.814 Spondylosis without myelopathy or radiculopathy, thoracic region; M48.04 Spinal stenosis, thoracic region; X58.XXXD Exposure to other specified factors, subsequent encounter
CPT/HCPCS: 72146